=== PATIENT | female | born 1940 | race Caucasian/White ===

== ENCOUNTER 2016-10-24 18:44 | Emergency (ER) | payer MEDICARE, OTHER ==
[2016-10-24 19:29] LABS: URINE APPEARANCE CLOUDY; URINE BILIRUBIN SMALL (NEGATIVE); URINE BLOOD LARGE (NEGATIVE); URINE COLOR BROWN; URINE GLUCOSE (UA) NEGATIVE (NEGATIVE); URINE KETONE NEGATIVE (NEGATIVE); URINE LEUKOCYTE ESTERASE NEGATIVE (NEGATIVE); URINE NITRITE NEGATIVE (NEGATIVE); URINE UROBILINOGEN 0.2 E.U./dL (0.20 - 1.00)
[2016-10-24] MEDS ORDERED: 0.9 % SODIUM CHLORIDE 1,000 ML BAG IV ONE (19:34)
[2016-10-24 19:37] LABS: URINE BACTERIA FEW; URINE SQUAMOUS EPITHELIAL CELL 0 - 2 /hpf; URINE WBC 0 - 2 (0-2/hpf)
[2016-10-24 19:51] LABS: BASO % 0.6 % (0-6); EOS % 3.2 % (0-6); GRAN % 63.1 % (47-80); HEMATOCRIT 40.5 % (35.0-47.0); HEMOGLOBIN 12.3 gm/dl (11.6-16.0); LYMPH % 24.5 % (16-45); MEAN CELL VOLUME 91.8 fl (81-97); MEAN CORPUSCULAR HEMOGLOBIN 27.9 pg (27-33); MEAN CORPUSCULAR HGB CONC 30.4 g/dl (32-36); MEAN PLATELET VOLUME 11.4 fl (7.4-10.4); MONO % 8.6 % (0-9); PLATELET COUNT 129 K/uL (130-400); RED BLOOD COUNT 4.41 M/uL (3.80-5.40); RED CELL DISTRIBUTION WIDTH 14.5 % (11.5-14.5); WHITE BLOOD COUNT W/O DIFF 8.1 K/uL (4.2-12.2)
[2016-10-24 20:03] LABS: ANION GAP 6.6 (7-16); BILIRUBIN,TOTAL 0.44 mg/dL (0.2-1.3); CARBON DIOXIDE 23.4 mmol/L (22-30); CREATININE 1.6 mg/dL (0.52-1.04); TOTAL PROTEIN 7.9 gm/dL (6.3-8.2)
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
[2016-10-24] MEDS ORDERED: HYDROCODONE/APAP 5/325MG TABLET PO ONE (21:28)
[2016-10-24] MEDS ORDERED: BENAZEPRIL 20 MG TABLET PO SCH (21:30)
--- NOTE | 2016-10-29 15:07 | CT SCAN REPORT ---
EXAM: ABDOMEN AND PELVIS CT WITHOUT CONTRAST HISTORY: ACUTE RIGHT LOWER QUADRANT ABDOMINAL PAIN. TECHNIQUE: Contiguous axial images from the lung bases to the symphysis pubis were obtained without IV contrast. Comparison: None. FINDINGS: Moderate sized hiatal hernia. 5 mm nodule posterior basal segment left lower lobe. Evaluation of the solid abdominal visceral organs is compromised due to lack of IV contrast. Scattered calcified granulomata in the liver and spleen. Slight exophytic hypodense focus posterior segment right lobe of the liver on image 28 of 108 measuring 35 Hounsfield units in density and 19 mm in size. The kidneys are unremarkable. The right adrenal is normal. Low attenuation left adrenal nodule measuring 2 Hounsfield units in density and 21 mm in size consistent with benign adenoma. The pancreas is normal. The gallbladder is absent. The visualized loops of small and large bowel are of normal caliber. No small bowel wall thickening. The appendix is not seen although there is no pericecal inflammatory change. Moderate to extensive colonic diverticulosis with no evidence of acute diverticulitis. Mesh material is noted along the lower ventral abdominal wall. There is increased attenuation surrounding what appears to be fat density at the left lateral margin of the mesh material which measures 5 x 2 cm in transverse dimension. Moderate aortic calcification. No free intraperitoneal fluid or adenopathy. No pelvic mass. The osseous structures reveal no lytic or blastic lesion. There are prominent inguinal lymph nodes bilaterally, the largest measuring up to 21 x 23 mm on the left. IMPRESSION: 1. NO ACUTE INFLAMMATORY PROCESS OF THE ABDOMEN OR PELVIS. 2. INDETERMINATE HYPODENSE FOCUS INVOLVING THE POSTERIOR SEGMENT OF THE RIGHT LOBE OF THE LIVER. BENIGN AND MALIGNANT ETIOLOGIES ARE POSSIBLE. COMPARISON WITH PRIOR CROSS SECTIONAL IMAGING OF THE LIVER WOULD BE HELPFUL. IF THIS IS NOT AVAILABLE MRI WITH CONTRAST COULD BETTER ASSESS. 3. BENIGN LEFT ADRENAL ADENOMA. 4. OLD GRANULOMATOUS DISEASE. 5. 5 MM LUNG NODULE LEFT LOWER LOBE. NO SPECIFIC FOLLOW-UP IS NECESSARY. 6. MODERATE SIZED HIATAL HERNIA. 7. COLONIC DIVERTICULOSIS. 8. MESH MATERIAL ALONG THE VENTRAL ABDOMINAL WALL WITH AREA OF INCREASED ATTENUATION SURROUNDING FAT ALONG THE LEFT LATERAL PORTION OF THE MESH. THIS COULD REFLECT POSTOPERATIVE CHANGE WITH POSSIBLE FAT NECROSIS. 9. MILDLY PROMINENT INGUINAL LYMPH NODES OF UNCERTAIN ETIOLOGY. JOB NUMBER: [id number] [facility]
== END 2016-10-24 21:53 | disposition home or self-care (01) ==
LOC: ER 18:44
DX: R10.11 Right upper quadrant pain (principal); N28.9 Disorder of kidney and ureter, unspecified; R31.0 Gross hematuria; K76.9 Liver disease, unspecified; I10 Essential (primary) hypertension
CPT/HCPCS: 74176; 80053; 81001; 83605; 83690; 85025; 99284; J7030

== ENCOUNTER 2017-03-24 13:20 | Emergency (ER) | payer MEDICARE, OTHER ==
--- NOTE | 2017-03-24 13:49 | Emergency Department Record ---
History of Present Illness - General Chief complaint: Vaginal bleeding Stated complaint: VAGINAL BLEEDING Time Seen by Provider: 03/24/17 13:37 Source: Patient, Family, Old records reviewed Mode of Arrival: Ambulatory Limitations: No limitations - History of Present Illness Initial comments: 76 yo female presents with urinary frequency for the last two days. She had noted some blood in the urine in the toilet as well. No fevers. She had developed some low back pain as well. The pain is on both sides. She does have a history of prior renal stones, chronic renal insufficiency, and uti. No vaginal bleeding. No blood in the stools. No nausea or vomiting. MD Complaint: Dysuria (Hematuria) -: Days(s) (2) Location: Other (low back pain) Radiation: L flank, R flank Severity: Moderate Quality: Aching Consistency: Constant Worsens with: None Patient : No Associated Symptoms: Hematuria - Related Data Previous Rx's Medication Instructions Recorded Hydrocodone/Acetaminophen [[place] 1 each PO Q8H #15 tablet 03/24/17 5-325 Tablet] Nitrofurantoin Monohyd/M-Cryst 100 mg PO BID #14 capsule 03/24/17 [Macrobid 100 mg Capsule] Allergies Allergy/AdvReac Type Severity Reaction Status Date / Time codeine Allergy ALTERED Verified 03/24/17 13:45 MENTAL STATUS morphine Allergy ITCHING Verified 03/24/17 13:45 Iodinated Contrast- Oral and AdvReac Pt has Verified 03/24/17 13:45 IV Dye Renal Failure Review of Systems Constitutional: Denies: Chills, Fever, Malaise, Weakness Eyes: Denies: Eye discharge ENT: Denies: Congestion, Throat pain Respiratory: Denies: Cough, Dyspnea, Hemoptysis, Stridor, Wheezes Cardiovascular: Denies: Chest pain, Syncope Endocrine: Reports: Polyuria. Denies: Fatigue Gastrointestinal: Reports: As per HPI, Abdominal pain. Denies: Diarrhea, Nausea , Vomiting Genitourinary: Reports: Dysuria, Frequency, Hematuria, Urgency. Denies: Abnormal menses Musculoskeletal: Reports: Back pain. Denies: Arthralgia, Joint swelling, Myalgia Skin: Denies: Bruising, Change in color, Rash Neurological: Denies: Headache, Numbness, Tremors, Vertigo, Weakness Psychiatric: Denies: Anxiety Hematological/Lymphatic: Denies: Blood Clots, Swollen glands Past Medical History - SOCIAL HISTORY Smoking Status: Never smoker Drug Use: None - RESPIRATORY Hx Respiratory Disorders: No - CARDIOVASCULAR Hx Cardio Disorders: Yes Hx Hypertension: Yes - NEURO Hx Neuro Disorders: No - Hx Genitourinary Disorders: Yes Hx Dialysis: No Hx Renal Disease: Yes - ENDOCRINE Hx Endocrine Disorders: Yes Hx Thyroid Disease: Yes - MUSCULOSKELETAL Hx Musculoskeletal Disorders: No - PSYCH Hx Psych Problems: No - HEMATOLOGY/ONCOLOGY Hx Hematology/Oncology Disorders: No Hx Cancer: No Physical Exam - General General Appearance: Alert, Oriented x3 Limitations: No limitations - Head Head exam: Atraumatic, Normocephalic, Normal inspection - Eye Eye exam: Normal appearance, PERRL Pupils: Normal accommodation - ENT ENT exam: Normal exam, Mucous membranes moist, Normal external ear exam, Normal orophraynx, TM's normal bilaterally Ear exam: Normal external inspection. negative: External canal tenderness Nasal Exam: Normal inspection. negative: Discharge, Sinus tenderness Mouth exam: Normal external inspection, Tongue normal Teeth exam: Normal inspection. negative: Dental caries Throat exam: Normal inspection. negative: Tonsillar erythema, Tonsillar exudate - Neck Neck exam: Normal inspection, Full ROM. negative: Tenderness - Respiratory Respiratory exam: Normal lung sounds bilaterally. negative: Respiratory distress - Cardiovascular Cardiovascular Exam: Regular rate, Normal rhythm, Normal heart sounds - GI/Abdominal GI/Abdominal exam: Soft, Normal bowel sounds, Other (morbidly obese abdomen but soft and not tender). negative: Rebound, Rigid, Tenderness - Rectal Rectal exam: Deferred - exam: Deferred - Extremities Extremities exam: Normal inspection, Full ROM, Normal capillary refill. negative: Tenderness - Back Back exam: Reports: Normal inspection, CVA tenderness (R), CVA tenderness (L), Full ROM, Tenderness. Denies: Muscle spasm, Rash noted - Neurological Neurological exam: Alert, Oriented X3 - Psychiatric Psychiatric exam: Normal affect, Normal mood. negative: Agitated, Anxious - Skin Skin exam: Dry, Intact, Normal color, Warm Course - Reevaluation(s) Reevaluation #1: 03/24/17 14:31 The labs were reviewed No acute changes of the CBC The CMP with a CR of 1.6 which s improved from prior UA is consistent with UTI. 03/24/17 15:11 No acute findings on the CT scan. Chronic stable changes. See the full report. No renal stones. Medical Decision Making - Lab Data Result diagrams: 03/24/17 13:55 03/24/17 13:55 Disposition Disposition: Discharge Clinical Impression: Urinary tract infection Qualifiers: Urinary tract infection type: acute cystitis Hematuria presence: with hematuria Qualified Code(s): N30.01 - Acute cystitis with hematuria Disposition: Home, Self-Care Condition: (1) Good Instructions: Urinary Tract Infection in Women (ED) Additional Instructions: Call your doctor for close follow up Return to the ER if worse, fever, uncontrolled pain or any new concerns Prescriptions: Hydrocodone/Acetaminophen [[place] 5-325 Tablet] 1 each PO Q8H #15 tablet Nitrofurantoin Monohyd/M-Cryst [Mac[place]bid 100 mg Capsule] 100 mg PO BID #14 capsule Forms: Patient Portal Access Time of Disposition: 15:12 Quality - Quality Measures Quality Measures: N/A - Blood Pressure Screening Does Patient Have Any of the Following: No Blood Pressure Classification: Pre-Hypertensive BP Reading Systolic Measurement: 121 Diastolic Measurement: 59 Screening for High Blood Pressure: < Pre-Hypertensive BP, F/U Documented > [ [id number]] Pre-Hypertensive Follow-up Interventions: Referral to alternative/primary care provider.
[2017-03-24] MEDS ORDERED: HYDROCODONE/APAP 5/325MG TABLET PO ONE (14:05)
[2017-03-24 14:12] LABS: URINE APPEARANCE CLEAR; URINE BILIRUBIN NEGATIVE (NEGATIVE); URINE BLOOD MODERATE (NEGATIVE); URINE COLOR YELLOW; URINE GLUCOSE (UA) NEGATIVE (NEGATIVE); URINE KETONE NEGATIVE (NEGATIVE); URINE LEUKOCYTE ESTERASE SMALL (NEGATIVE); URINE NITRITE NEGATIVE (NEGATIVE); URINE PROTEIN NEGATIVE (NEGATIVE); URINE UROBILINOGEN 0.2 E.U./dL (0.20 - 1.00)
[2017-03-24 14:12] LABS: BASO % 0.5 % (0-6); EOS % 2.1 % (0-6); HEMATOCRIT 37.8 % (35.0-47.0); HEMOGLOBIN 11.8 gm/dl (11.6-16.0); LYMPH % 16.3 % (16-45); MEAN CELL VOLUME 89.8 fl (81-97); MEAN CORPUSCULAR HGB CONC 31.2 g/dl (32-36); MEAN PLATELET VOLUME 10.9 fl (7.4-10.4); MONO % 8.1 % (0-9); PLATELET COUNT 118 K/uL (130-400); RED BLOOD COUNT 4.21 M/uL (3.80-5.40); WHITE BLOOD COUNT W/O DIFF 7.9 K/uL (4.2-12.2)
[2017-03-24 14:19] LABS: URINE BACTERIA 3+; URINE EPITHELIAL CELLS 0 - 2 (FEW)
[2017-03-24 14:26] LABS: ALBUMIN 3.7 g/dL (4.0-5.0); BILIRUBIN,TOTAL 0.5 mg/dL (0.2-1.0); CREATININE 1.6 mg/dL (0.5-0.9); TOTAL PROTEIN 7.5 g/dL (6.6-8.7)
[2017-03-24] MEDS ORDERED: NITROFURANTOIN MONO 100 MG CAPSULE PO ONE (14:30)
--- NOTE | 2017-03-25 11:22 | CT SCAN REPORT ---
EXAM: CT SCAN ABDOMEN/PELVIS WO CONTRAST HISTORY: BLADDER DISCOMFORT. TECHNIQUE: CT of the abdomen and pelvis was performed without oral or IV contrast. This limits evaluation of bowel and solid visceral organs. COMPARISON: Prior CT from 10/24/16. FINDINGS: Limited evaluation of the lung bases shows a moderate-sized hiatal hernia. Osseous structures are grossly intact. Branching lucencies within the liver likely relates to pneumobilia. Correlate with any recent instrumentation. Status post cholecystectomy. Splenic granulomata. There is a stable 2.1 x 2.2 cm left adrenal nodule, likely adenoma. The right adrenal gland is unremarkable. The visualized pancreas and kidneys are unremarkable. No gross evidence for bowel obstruction. Postsurgical changes consistent with prior anterior abdominal wall hernia repair. There is a stable area of mixed density at the hernia repair site measuring 5.3 x 4.0 cm. This is associated with the left mesh material. This may relate to a component of scarring and fibrosis. Urinary bladder is not distended, limiting its evaluation. Negative for urinary tract calculus or hydronephrosis. No free air or free fluid. IMPRESSION: 1. PNEUMOBILIA. CORRELATE WITH ANY RECENT INSTRUMENTATION. THE PATIENT IS STATUS POST CHOLECYSTECTOMY. 2. MODERATE-SIZED HIATAL HERNIA. 3. MIXED DENSITY FOCUS NEAR THE SITE OF ANTERIOR ABDOMINAL WALL HERNIA REPAIR/ MESH, ALSO PRESENT PREVIOUSLY. JOB NUMBER: [id number] [facility]
== END 2017-03-24 16:05 | disposition home or self-care (01) ==
LOC: ER 13:20
DX: N30.01 Acute cystitis with hematuria (principal); M54.5 Low back pain; I12.9 Hypertensive chronic kidney disease with stage 1 through stage 4 chronic kidney disease, or unspecified chronic kidney disease; N18.9 Chronic kidney disease, unspecified; Z87.442 Personal history of urinary calculi
CPT/HCPCS: 74176; 80053; 81001; 85025; 99283; 99284

== ENCOUNTER 2017-09-22 15:09 | Emergency (ER) | payer MEDICARE, OTHER ==
--- NOTE | 2017-09-22 15:43 | Emergency Department Record ---
History of Present Illness - General Stated complaint: DIARRHEA Time Seen by Provider: 09/22/17 15:36 Source: Patient, Family Mode of Arrival: Ambulatory Limitations: No limitations - History of Present Illness Initial comments: 77 yo female presents with nausea, diarrhea since Thursday. No fevers or blood. No recent antibiotics. She is feeling weak and dehydrated. She reports having stools every 2 hours. No vomiting but she has come close. No abdominal pain. Her stool is watery brown. PCP is Cora. GI is Marbin. She has been drinking normally. She is still eating but has some nausea. MD complaint: Diarrhea, Nausea, Vomiting -: Days(s) (5) Description of Vomiting: Watery Description of Diarrhea: Water Radiation: Other (No pain) Severity: Moderate Consistency: Constant Improves with: None Worsens with: Eating Context: Other Associated Symptoms: Denies other symptoms - Related Data Previous Rx's Medication Instructions Recorded Loperamide HCl [Immodium] 2 mg PO NOW #10 capsule 09/22/17 Ondansetron [Zofran Odt] 4 mg PO Q8H #15 tab.rapdis 09/22/17 Allergies Allergy/AdvReac Type Severity Reaction Status Date / Time codeine Allergy ALTERED Verified 09/22/17 16:28 MENTAL STATUS morphine Allergy ITCHING Verified 09/22/17 16:28 Iodinated Contrast- Oral and AdvReac Pt has Verified 09/22/17 16:28 IV Dye Renal Failure Review of Systems Constitutional: Reports: Weakness. Denies: Chills, Fever Eyes: Denies: Eye discharge, Eye pain ENT: Denies: Congestion, Dental pain, Throat pain Respiratory: Denies: Cough, Dyspnea, Hemoptysis, Stridor, Wheezes Cardiovascular: Denies: Chest pain, Palpitations, Syncope Endocrine: Denies: Fatigue, Polydipsia, Polyuria Gastrointestinal: Reports: Diarrhea, Nausea. Denies: Abdominal pain, Hematochezia, Vomiting Genitourinary: Denies: Dysuria, Urgency Musculoskeletal: Denies: Arthralgia, Back pain, Joint swelling, Myalgia Skin: Denies: Bruising, Change in color Neurological: Denies: Headache, Numbness, Vertigo, Weakness Psychiatric: Denies: Anxiety Hematological/Lymphatic: Denies: Blood Clots, Easy bleeding, Easy bruising, Swollen glands Past Medical History - SOCIAL HISTORY Smoking Status: Never smoker Drug Use: None - RESPIRATORY Hx Respiratory Disorders: No - CARDIOVASCULAR Hx Cardio Disorders: Yes Hx Hypertension: Yes - NEURO Hx Neuro Disorders: No - GI Hx Diverticulitis: Yes - Hx Genitourinary Disorders: Yes Hx Dialysis: No Hx Renal Disease: Yes - ENDOCRINE Hx Endocrine Disorders: Yes Hx Thyroid Disease: Yes - MUSCULOSKELETAL Hx Musculoskeletal Disorders: No - PSYCH Hx Psych Problems: No - HEMATOLOGY/ONCOLOGY Hx Hematology/Oncology Disorders: No Hx Cancer: No Physical Exam - General General Appearance: Alert, Oriented x3, Cooperative, No acute distress Limitations: No limitations - Head Head exam: Atraumatic, Normal inspection - Eye Eye exam: Normal appearance. negative: Conjunctival injection, Scleral icterus - ENT ENT exam: Normal exam, Mucous membranes moist Ear exam: Normal external inspection Nasal Exam: Normal inspection Mouth exam: Normal external inspection Teeth exam: Normal inspection Throat exam: Normal inspection - Neck Neck exam: Normal inspection, Full ROM. negative: Tenderness - Respiratory Respiratory exam: Normal lung sounds bilaterally. negative: Respiratory distress, Rhonchi, Stridor, Wheezes - Cardiovascular Cardiovascular Exam: Regular rate, Normal rhythm, Normal heart sounds - GI/Abdominal GI/Abdominal exam: Soft. negative: Distended, Guarding, Rebound, Rigid, Tenderness - Rectal Rectal exam: Deferred - exam: Deferred - Extremities Extremities exam: Normal inspection, Full ROM, Normal capillary refill. negative: Tenderness - Back Back exam: Denies: CVA tenderness (R), CVA tenderness (L) - Neurological Neurological exam: Alert, Normal gait, Oriented X3 - Psychiatric Psychiatric exam: Normal affect, Normal mood - Skin Skin exam: Dry, Intact, Normal color, Warm Course - Reevaluation(s) Reevaluation #1: 09/22/17 17:08 The labs were reviewed No acute changes on the CBC The CMP CR is 1.6 which is her normal baseline Lipase 71. Normal AG. Stool sample reviewed. Negative for blood or WBC. Negative for crypto. Negative Giardia. Negative Rotovirus 09/22/17 17:10 09/22/17 17:25 The C diff is pending The patient reports the nausea is greatly improved No abdominal pain 09/22/17 17:55 All stool studies are negative Immodium ordered 09/22/17 17:58 The patient continued to do very well. After the 2nd liter of IVF I anticipate DC home with supportive care with a plan to return to the ED in the next 24-48 hours for a recheck (or her PCP) if the diarrhea is not improving. She has no pain, normal stool studies, labs are at her baseline and she is drinking well at home staying hydrated. 09/22/17 18:11 UA reviewed N- LE- No WBC Bacteria No Ketones Culture Sent Patient informed Medical Decision Making - Lab Data Result diagrams: 09/22/17 16:05 09/22/17 16:05 Disposition Disposition: Discharge Clinical Impression: Diarrhea Qualifiers: Diarrhea type: unspecified type Qualified Code(s): R19.7 - Diarrhea, unspecified Disposition: Home, Self-Care Condition: (1) Good Instructions: Acute Diarrhea (ED) Additional Instructions: Return to the ER or see you family doctor in the next 24 to 48 hours if the diarrhea continues Continue to stay well hydrated home You may use the Zofran and Immodium as directed Prescriptions: Loperamide HCl [Immodium] 2 mg PO NOW #10 capsule Ondansetron [Zofran Odt] 4 mg PO Q8H #15 tab.rapdis Forms: Patient Portal Access Time of Disposition: 18:01 Quality - Quality Measures Quality Measures: N/A - Blood Pressure Screening Does Patient Have Any of the Following: Active Dx of HTN Blood Pressure Classification: Hypertensive Reading Systolic Measurement: 144 Diastolic Measurement: 78 Screening for High Blood Pressure: Patient Exclusion, Hx of HTN [G9744]
[2017-09-22] MEDS: ONDANSETRON HCL IV 4 MG/2 ML VIAL IVP ONE (16:05)
[2017-09-22] MEDS: 0.9 % SODIUM CHLORIDE 1,000 ML BAG IV ONE ×2 (16:06→17:58)
[2017-09-22 16:16] LABS: BASO % 0.4 % (0-6); EOS % 1.3 % (0-6); GRAN % 77.2 % (47-80); HEMATOCRIT 37.8 % (35.0-47.0); HEMOGLOBIN 11.7 gm/dl (11.6-16.0); LYMPH % 15.7 % (16-45); MEAN CELL VOLUME 88.5 fl (81-97); MEAN CORPUSCULAR HEMOGLOBIN 27.4 pg (27-33); MEAN PLATELET VOLUME 10.5 fl (7.4-10.4); MONO % 5.4 % (0-9); PLATELET COUNT 137 K/uL (130-400); RED BLOOD COUNT 4.27 M/uL (3.80-5.40); WHITE BLOOD COUNT W/O DIFF 8.6 K/uL (4.2-12.2)
[2017-09-22 16:31] LABS: BILIRUBIN,TOTAL 0.4 mg/dL (0.2-1.0); CREATININE 1.6 mg/dL (0.5-0.9); TOTAL PROTEIN 7.4 g/dL (6.6-8.7)
[2017-09-22 16:36] LABS: ALB/GLOB RATIO 0.9 (1.1-1.8); ALBUMIN 3.6 g/dL (4.0-5.0)
[2017-09-22 16:59] LABS: STOOL FOR POLYS NO WBC'S OBSERVED (NO WBC'S)
[2017-09-22 17:06] LABS: CRYPTOSPORIDIUM PARVUM ANTIGEN NOT DETECTED (NOT DETECT); GIARDIA LAMBLIA ANTIGEN NOT DETECTED (NOT DETECT); ROTOVIRUS NOT DETECTED (NOT DETECT)
[2017-09-22 17:48] LABS: MOLECULAR C DIFF TOXIN SCREEN NOT DETECTED (NOT DETECT)
[2017-09-22 17:57] LABS: URINE APPEARANCE CLEAR; URINE BILIRUBIN NEGATIVE (NEGATIVE); URINE BLOOD SMALL (NEGATIVE); URINE COLOR YELLOW; URINE GLUCOSE (UA) NEGATIVE (NEGATIVE); URINE KETONE NEGATIVE (NEGATIVE); URINE LEUKOCYTE ESTERASE NEGATIVE (NEGATIVE); URINE NITRITE NEGATIVE (NEGATIVE); URINE PROTEIN TRACE (NEGATIVE); URINE UROBILINOGEN 0.2 E.U./dL (0.20 - 1.00)
[2017-09-22] MEDS: LOPERAMIDE 2 MG CAPSULE PO ONE ×2 (17:58→18:11)
[2017-09-22 18:07] LABS: URINE RBC 0 - 2 (NONE SEEN); URINE WBC 0 - 2 (0-2/hpf)
[2017-09-22 18:08] LABS: URINE BACTERIA 2+
[2017-09-22] MEDS: ONDANSETRON 4 MG ODT TABLET SL ONE (18:10)
== END 2017-09-22 18:32 | disposition home or self-care (01) ==
LOC: ER 15:09
DX: R19.7 Diarrhea, unspecified (principal); R11.2 Nausea with vomiting, unspecified; I10 Essential (primary) hypertension
CPT/HCPCS: 80053; 81001; 82272; 83690; 85025; 87329; 87425; 87493; 89055; 99284; J2405; J7030

== ENCOUNTER 2017-10-04 13:44 | Emergency (ER) | payer MEDICARE, OTHER ==
--- NOTE | 2017-10-04 13:58 | Emergency Department Record ---
History of Present Illness - General Chief Complaint: Fall Injury Stated Complaint: FELL IN BATHROOM AT HOME Time Seen by Provider: 10/04/17 13:49 Source: Patient, Family Mode of Arrival: Ambulatory Limitations: No limitations - History of Present Illness Initial Comments: The patient is here due to falling in the bathroom at home about 2 hours prior to arrival. She believes she tripped and landed falling forward hitting her R forehead mildly and also hurt her R wrist and L shoulder. The patient's family did hear the patient fall and did find her awake immediately after. Since the fall she is only complaining of R wrist and L shoulder pain. There is no reported COPPOLA, or neck pain. The patient is on Xarelto due to chronic L leg edema. The patient did take a [place] after the fall and does not want any more pain medicine at this time. Complaint: Fall Onset/Timin -: Hour(s) Fall From: Standing When Fall Occurred: Just prior to arrival Fall Witnessed: No Place Fall Occurred: Home Loss of Consciousness: None Prolonged Down Time?: No Symptoms Prior to Fall: None - Related Data Previous Rx's Medication Instructions Recorded Loperamide HCl [Immodium] 2 mg PO NOW #10 capsule 09/22/17 Ondansetron [Zofran Odt] 4 mg PO Q8H #15 tab.rapdis 09/22/17 Allergies Allergy/AdvReac Type Severity Reaction Status Date / Time codeine Allergy ALTERED Verified 09/22/17 16:28 MENTAL STATUS morphine Allergy ITCHING Verified 09/22/17 16:28 Iodinated Contrast- Oral and AdvReac Pt has Verified 09/22/17 16:28 IV Dye Renal Failure Review of Systems Constitutional: Denies: Chills, Fever Eyes: Denies: Eye discharge ENT: Denies: Congestion Respiratory: Denies: Cough, Dyspnea Cardiovascular: Denies: Arrhythmia Endocrine: Reports: Fatigue Gastrointestinal: Denies: Abdominal pain Genitourinary: Denies: Dysuria Musculoskeletal: Denies: Back pain Past Medical History - SOCIAL HISTORY Smoking Status: Never smoker Drug Use: None - RESPIRATORY Hx Respiratory Disorders: No - CARDIOVASCULAR Hx Cardio Disorders: Yes Hx Hypertension: Yes - NEURO Hx Neuro Disorders: No - GI Hx Diverticulitis: Yes - Hx Genitourinary Disorders: Yes Hx Dialysis: No Hx Renal Disease: Yes - ENDOCRINE Hx Endocrine Disorders: Yes Hx Thyroid Disease: Yes - MUSCULOSKELETAL Hx Musculoskeletal Disorders: No - PSYCH Hx Psych Problems: No - HEMATOLOGY/ONCOLOGY Hx Hematology/Oncology Disorders: No Hx Cancer: No Physical Exam - General General Appearance: Alert, Oriented x3, Cooperative, No acute distress - Head Head exam: Normocephalic. negative: Atraumatic, Normal inspection (There is a minor contusion to the R forehead area.) - Eye Eye exam: Normal appearance, PERRL, EOMI - ENT Throat exam: Normal inspection. negative: Tonsillar erythema, Tonsillar exudate - Neck Neck exam: Normal inspection, Full ROM. negative: Tenderness - Respiratory Respiratory exam: Normal lung sounds bilaterally. negative: Respiratory distress - Cardiovascular Cardiovascular Exam: Regular rate, Normal rhythm, Normal heart sounds - GI/Abdominal GI/Abdominal exam: Soft, Normal bowel sounds. negative: Tenderness - Extremities Extremities exam: negative: Normal inspection Course - Reevaluation(s) Reevaluation #1: The patient is doing better at this time. She denies any significant COPPOLA or neck pain and states the pain in the wrist and shoulder have worsened. I did discuss the plan with her and the need for Ortho consultation and she would like to go to [facility]. 10/04/17 15:42 Reevaluation #2: I did discuss the case with Dr. Brooks in the [facility] ED who accepts the patient for Trauma. I also did discuss the case with Dr. Myers at [facility] ([facility]) and he is aware of the case. 10/04/17 16:01 Medical Decision Making - Data Complexity MDM Data: Labs Ordered and/or Reviewed, X-Ray Ordered and/or Reviewed, EKG Ordered and/or Reviewed - Lab Data Result diagrams: 10/04/17 14:11 10/04/17 14:11 - EKG Data -: EKG Interpreted by Me EKG: No Acute Changes, Normal EKG - Radiology Data Radiology results: Report reviewed (Head CT: Neg for acute injury Cervical CT : Neg for fx or dislocation. R Wrist: Intraarticular distal radius and ulna fx with impaction. L shoulder: Surgical neck comminuted fx with significant displacement.) Disposition Disposition: Transfer Clinical Impression: Wrist fracture, right Qualifiers: Encounter type: initial encounter Fracture type: closed Qualified Code(s): S62.101A - Fracture of unspecified carpal bone, right wrist, initial encounter for closed fracture Fractured shoulder Qualifiers: Encounter type: initial encounter Fracture type: closed Laterality: left Qualified Code(s): S42.92XA - Fracture of left shoulder girdle, part unspecified , initial encounter for closed fracture Disposition: Acute Care Hospital Transfer Transfer To: [facility] ED Reason For Transfer: Trauma and Orthopedics Accepting Physician: Cecilia Time Discussed w/Accepting Physician: 16:03 Condition: (2) Stable Forms: Patient Portal Access Time of Disposition: 16:03 Quality - Quality Measures Quality Measures: N/A - Blood Pressure Screening View Details: Yes Does Patient Have Any of the Following: No Blood Pressure Classification: Pre-Hypertensive BP Reading Systolic Measurement: 125 Diastolic Measurement: 54 Screening for High Blood Pressure: < Pre-Hypertensive BP, F/U Documented > [ G8950] Pre-Hypertensive Follow-up Interventions: Referral to alternative/primary care provider.
[2017-10-04] MEDS ORDERED: ONDANSETRON HCL IV 4 MG/2 ML VIAL IVP ONE ×2 (13:59→16:45)
[2017-10-04] MEDS ORDERED: MORPHINE SULFATE 4MG/ML PREFILLED SYRINGE IVP ONE (13:59)
[2017-10-04 14:13] LABS: HEMATOCRIT 36.9 % (35.0-47.0); HEMOGLOBIN 11.2 gm/dl (11.6-16.0); MEAN CELL VOLUME 88.7 fl (81-97); MEAN CORPUSCULAR HEMOGLOBIN 26.9 pg (27-33); MEAN CORPUSCULAR HGB CONC 30.4 g/dl (32-36); MEAN PLATELET VOLUME 10.4 fl (7.4-10.4); PLATELET COUNT 155 K/uL (130-400); RED BLOOD COUNT 4.16 M/uL (3.80-5.40); RED CELL DISTRIBUTION WIDTH 17.4 % (11.5-14.5); WHITE BLOOD COUNT W/O DIFF 8.5 K/uL (4.2-12.2)
[2017-10-04 14:28] LABS: INR 1.1; PARTIAL THROMBOPLASTIN TIME 29.9 SECONDS (24.5-39.1); PROTHROMBIN TIME (PATIENT) 12.1 SECONDS (9.5-12.1)
[2017-10-04 14:30] LABS: ALBUMIN 3.5 g/dL (4.0-5.0); ALKALINE PHOSPHATASE 92 U/L (35-104); ALT/SGPT < 5 U/L (<33); AST/SGOT 16 U/L (10.0-35.0); BLOOD UREA NITROGEN 26 mg/dL (8-23); CREATINE PHOSPHOKINASE 79 U/L (26-192)
[2017-10-04 14:31] LABS: ALB/GLOB RATIO 0.9 (1.1-1.8); CREATININE 1.6 mg/dL (0.5-0.9); EST GLOMERULAR FILTRATION RATE 33 mL/min; GLUCOSE,RANDOM 135 mg/dL (74-109); TOTAL PROTEIN 7.3 g/dL (6.6-8.7)
[2017-10-04 14:32] LABS: CKMB 2.6 ng/mL (<3.77)
[2017-10-04] MEDS ORDERED: HYDROMORPHONE HCL 2 MG/ML VIAL IVP ONE (15:05)
--- NOTE | 2017-10-05 10:24 | RADIOLOGY REPORT ---
EXAM: LEFT SHOULDER HISTORY: FELL IN SHOWER TODAY. SEVERE LEFT SHOULDER PAIN. TECHNIQUE: Three views of the left shoulder were obtained. Comparison: None. Encounter: Initial. FINDINGS: There is a comminuted fracture of the surgical neck of the humerus with medial displacement of the distal fragment. A vertically oriented fracture is also noted extending into the greater tuberosity. The tuberosity fracture is displaced superiorly and posteriorly. There is no dislocation of the humeral head. There are mild arthritic changes of the acromioclavicular joint. IMPRESSION: COMMINUTED DISPLACED FRACTURE OF THE SURGICAL NECK AND GREATER TUBEROSITY OF THE LEFT HUMERUS. JOB NUMBER: [id number] MTDD
--- NOTE | 2017-10-05 10:28 | RADIOLOGY REPORT ---
EXAM: RIGHT WRIST HISTORY: FELL IN SHOWER TODAY, RIGHT WRIST PAIN WITH SWELLING AND BRUISING. TECHNIQUE: Four views of the right wrist were obtained. Comparison: None. FINDINGS: There is a comminuted intraarticular fracture of the distal radius with no significant displacement. There is a nondisplaced, mildly impacted fracture of the distal ulnar metaphysis. There is abnormal widening of the scapholunate distance. No discreet carpal fracture is identified. There are advanced arthritic changes along the radial aspect of the wrist and first carpal metacarpal joint. IMPRESSION: 1. NONDISPLACED MILDLY COMMINUTED INTRAARTICULAR FRACTURE OF THE DISTAL RADIUS. 2. NONDISPLACED, MILDLY IMPACTED FRACTURE OF THE DISTAL ULNA. 3. ABNORMAL WIDENING OF THE SCAPHOLUNATE DISTANCE. JOB NUMBER: [id number] MTDD
--- NOTE | 2017-10-05 10:40 | CT SCAN REPORT ---
EXAM: CT SCAN OF THE BRAIN WITHOUT CONTRAST HISTORY: FELL IN SHOWER TODAY. HEMATOMA AT THE RIGHT FOREHEAD. TECHNIQUE: Standard CT imaging of the brain was performed in the axial plane without contrast. Comparison: None. Encounter: Initial. FINDINGS: There is mild generalized atrophy. The ventricles and subarachnoid spaces are otherwise normal. Mild chronic small vessel ischemic changes are present within the periventricular and subcortical white matter at both cerebral hemispheres. There is no mass, mass effect, intracranial hemorrhage, visible acute infarct, or abnormal extraaxial fluid. The skull is intact. Mild scalp swelling is present within the right frontal region. The orbits, sinuses, and mastoids are normal. IMPRESSION: 1. NO ACUTE INTRACRANIAL ABNORMALITY OR SKULL FRACTURE. 2. MILD RIGHT FRONTAL SCALP SWELLING. 3. MILD ATROPHY AND CHRONIC SMALL VESSEL ISCHEMIC CHANGES. JOB NUMBER: [id number] MTDD
--- NOTE | 2017-10-05 10:44 | CT SCAN REPORT ---
EXAM: CT SCAN OF THE CERVICAL SPINE WITHOUT CONTRAST HISTORY: FELL IN SHOWER TODAY. TRAUMA. HEAD INJURY. TECHNIQUE: Standard CT imaging of the cervical spine was performed in the axial plane without contrast. Comparison: None. Encounter: Initial. FINDINGS: There is normal cervical alignment. The craniocervical and cervicothoracic junctions are normal. There is no acute fracture, subluxation, or prevertebral soft tissue swelling. There is moderate to severe disk space narrowing of the C4 through the T1 levels with associated end plate degenerative change. Moderate disk space narrowing is present at the C2-C3 and C3-C4 levels. There is no gross central canal stenosis. Mild neural foraminal narrowing is present at multiple levels. The neck soft tissues appear within normal limits. The lung apices are clear. IMPRESSION: 1. NO ACUTE CERVICAL SPINE PATHOLOGY. 2. MULTILEVEL DEGENERATIVE DISK DISEASE. JOB NUMBER: [id number] MTDD
== END 2017-10-04 16:50 | disposition short-term general hospital (02) ==
LOC: ER 13:44
DX: S52.571A Other intraarticular fracture of lower end of right radius, initial encounter for closed fracture (principal); S52.601A Unspecified fracture of lower end of right ulna, initial encounter for closed fracture; S42.252A Displaced fracture of greater tuberosity of left humerus, initial encounter for closed fracture; S00.83XA Contusion of other part of head, initial encounter; I10 Essential (primary) hypertension; Z79.01 Long term (current) use of anticoagulants; W01.10XA Fall on same level from slipping, tripping and stumbling with subsequent striking against unspecified object, initial encounter; Y92.002 Bathroom of unspecified non-institutional (private) residence as the place of occurrence of the external cause
CPT/HCPCS: 29125; 99285 ×2; 96376; 96374; 96375; 82550; 85730; 85610; 82553; 80053; 84484; 85027; 73030; 73110; 72125; 70450; 93005; 93010; J2405; J1170

== ENCOUNTER 2018-01-07 18:03 | Emergency (ER) | payer MEDICARE, OTHER ==
--- NOTE | 2018-01-07 19:10 | Emergency Department Record ---
History of Present Illness - General Chief Complaint: Trauma Stated Complaint: FALL Time Seen by Provider: 01/07/18 18:39 Source: Patient Mode of Arrival: Wheelchair Limitations: No limitations - History of Present Illness Initial Comments: pt was getting into a truck when her r leg gave way with a crack. pt has pain in the ankle. Complaint: Injury Onset/Timin -: Minutes(s) Loss of Consciousness: No Location - Extremities: Right: Ankle Severity scale (1-10): 10 Consistency: Constant Context: Other Associated Symptoms: Denies other symptoms - Related Data Previous Rx's Medication Instructions Recorded Hydrocodone/Acetaminophen [[place] 1 each PO Q6HR #7 tablet 01/07/18 5-325 Tablet] Allergies Allergy/AdvReac Type Severity Reaction Status Date / Time codeine Allergy ALTERED Verified 01/07/18 18:21 MENTAL STATUS morphine Allergy ITCHING Verified 01/07/18 18:21 Iodinated Contrast- Oral and AdvReac Pt has Verified 01/07/18 18:21 IV Dye Renal Failure Travel Screening - Travel/Exposure Within Last 30 Days Have you traveled within the last 30 days?: No - Travel/Exposure Within Last Year Have you traveled outside the [place] in the last year?: No - Additonal Travel Details Have you been exposed to anyone with a communicable illness?: No - Travel Symptoms Symptom Screening: None Review of Systems Reviewed: No additional complaints except as noted below Constitutional: Reports: As per HPI. Denies: Chills, Fever, Malaise, Night sweats, Weakness, Weight change Eyes: Reports: As per HPI. Denies: Eye discharge, Eye pain, Photophobia, Vision change ENT: Reports: As per HPI. Denies: Congestion, Dental pain, Ear pain, Epistaxis , Hearing loss, Throat pain Respiratory: Reports: As per HPI. Denies: Cough, Dyspnea, Hemoptysis, Stridor, Wheezes Cardiovascular: Reports: As per HPI. Denies: Arrhythmia, Chest pain, Dyspnea on exertion, Edema, Murmurs, Orthopnea, Palpitations, Paroxysmal nocturnal dyspnea, Rheumatic Fever, Syncope Endocrine: Reports: As per HPI. Denies: Fatigue, Heat or cold intolerance, Polydipsia, Polyuria Gastrointestinal: Reports: As per HPI. Denies: Abdominal pain, Constipation, Diarrhea, Hematemesis, Hematochezia, Melena, Nausea, Vomiting Genitourinary: Reports: As per HPI. Denies: Abnormal menses, Discharge, Dyspareunia, Dysuria, Frequency, Hematuria, Incontinence, Retention, Urgency Musculoskeletal: Reports: As per HPI. Denies: Arthralgia, Back pain, Gout, Joint swelling, Myalgia, Neck pain Skin: Reports: As per HPI. Denies: Bruising, Change in color, Change in hair/ nails, Lesions, Pruritus, Rash Neurological: Reports: As per HPI. Denies: Abnormal gait, Confusion, Headache, Numbness, Paresthesias, Seizure, Tingling, Tremors, Vertigo, Weakness Psychiatric: Reports: As per HPI. Denies: Anxiety, Auditory hallucinations, Depression, Homicidal thoughts, Suicidal thoughts, Visual hallucinations Hematological/Lymphatic: Reports: As per HPI. Denies: Anemia, Blood Clots, Easy bleeding, Easy bruising, Swollen glands Past Medical History - SOCIAL HISTORY Smoking Status: Never smoker Alcohol Use: None Drug Use: None - RESPIRATORY Hx Respiratory Disorders: No - CARDIOVASCULAR Hx Cardio Disorders: Yes Hx Hypertension: Yes - NEURO Hx Neuro Disorders: No - GI Hx GI Disorders: Yes Hx Diverticulitis: Yes (diverticulosis) - Hx Genitourinary Disorders: Yes Hx Dialysis: No Hx Renal Disease: Yes - ENDOCRINE Hx Endocrine Disorders: Yes Hx Diabetes: No Hx Thyroid Disease: Yes - MUSCULOSKELETAL Hx Musculoskeletal Disorders: No - PSYCH Hx Psych Problems: No - HEMATOLOGY/ONCOLOGY Hx Hematology/Oncology Disorders: No Hx Cancer: No Family Medical History Any Significant Family History?: No Physical Exam - General General Appearance: Alert, Oriented x3, Cooperative, Mild distress - Head Head exam: Normal inspection - Eye Eye exam: Normal appearance, PERRL, EOMI Pupils: Normal accommodation - ENT ENT exam: Normal exam, Mucous membranes moist, Normal external ear exam, Normal orophraynx Ear exam: Normal external inspection. negative: External canal tenderness Nasal Exam: Normal inspection. negative: Discharge, Sinus tenderness Mouth exam: Normal external inspection, Tongue normal Teeth exam: Normal inspection. negative: Dental caries Throat exam: Normal inspection. negative: Tonsillar erythema, Tonsillar exudate - Neck Neck exam: Normal inspection, Full ROM. negative: Tenderness - Respiratory Respiratory exam: Normal lung sounds bilaterally. negative: Respiratory distress - Cardiovascular Cardiovascular Exam: Regular rate, Normal rhythm, Normal heart sounds - GI/Abdominal GI/Abdominal exam: Soft, Normal bowel sounds. negative: Tenderness - Rectal Rectal exam: Deferred - exam: Deferred - Extremities Extremities exam: Joint swelling, Normal capillary refill, Tenderness. negative : Normal inspection, Full ROM - Back Back exam: Reports: Normal inspection, Full ROM. Denies: Muscle spasm, Rash noted, Tenderness - Neurological Neurological exam: Alert, CN II-XII intact, Normal gait, Oriented X3 - Psychiatric Psychiatric exam: Normal affect, Normal mood - Skin Skin exam: Dry, Intact, Normal color, Warm Course Vital Signs 01/07/18 18:09 Temperature 98.4 F Pulse Rate 94 H Respiratory 20 Rate Blood Pressure 156/89 Pulse Ox 96 Disposition Disposition: Discharge Clinical Impression: Fibula fracture Qualifiers: Encounter type: initial encounter Fibula location: distal Fracture type: closed Fracture morphology: other fracture Laterality: right Qualified Code(s): S82.831A - Other fracture of upper and lower end of right fibula, initial encounter for closed fracture Disposition: Home, Self-Care Condition: (1) Good Instructions: Ankle Fracture (ED), Leg Fracture (ED) Additional Instructions: follow up with dr gresham. return sooner if worse. ice and elevate. Prescriptions: Hydrocodone/Acetaminophen [[place] 5-325 Tablet] 1 each PO Q6HR #7 tablet Referrals: [facility] [Provider Group] MILTON GRESHAM [DOCTOR OF OSTEOPATH] - Forms: Patient Portal Access Quality - Quality Measures Quality Measures: N/A - Blood Pressure Screening Does Patient Have Any of the Following: No Blood Pressure Classification: Pre-Hypertensive BP Reading Systolic Measurement: 156 Diastolic Measurement: 89 Screening for High Blood Pressure: < Pre-Hypertensive BP, F/U Documented > [ G8950] Pre-Hypertensive Follow-up Interventions: Follow-up with rescreen every year.
[2018-01-07] MEDS: HYDROCODONE/APAP 5/325MG TABLET PO ONE (19:19)
--- NOTE | 2018-01-10 21:10 | RADIOLOGY REPORT ---
EXAM: ANKLE RIGHT 3 VIEWS HISTORY: FALL FROM TRUCK. TECHNIQUE: Three views of the right ankle. COMPARISON: None. ENCOUNTER: Initial. FINDINGS: Diffuse osteopenia limits evaluation. There is an oblique fracture of the distal fibula with the distal extent located near the superior margin of the distal tibiofibular joint. There is slight proximal and lateral displacement of the distal fracture fragment. On the AP view, the tibiotalar joint space measures approximately 5 mm. There is associated soft tissue swelling. No other definite fracture is seen though on the AP view, there is subtle lucency projecting near the medial margin of the medial malleolus base. There is a small ossicle noted adjacent to the tip of the medial malleolus. There is asymmetry of the ankle mortise on the AP view with the medial corner appearing slightly more pronounced than the lateral corner. There are degenerative changes scattered throughout the tibiotalar joint and hindfoot. There is associated flattening of the plantar arch. A small plantar calcaneal spur is present. There is chronic-appearing calcific density projecting at the level of the mid Achilles tendon measuring 2.2 x 0.9 cm. There is diffuse soft tissue swelling, most pronounced laterally. This extends into the proximal foot. IMPRESSION: 1. DIFFUSE OSTEOPENIA. 2. ACUTE MINIMALLY DISPLACED OBLIQUE FRACTURE OF THE DISTAL FIBULA. 3. SUBTLE LUCENCY PROJECTING NEAR THE MEDIAL MARGIN OF THE MEDIAL MALLEOLUS BASE IS LIKELY CHRONIC WITH ACUTE FRACTURE LESS LIKELY. CHRONIC-APPEARING OSSICLE AT THE TIP OF THE MEDIAL MALLEOLUS. 4. DIFFUSE SOFT TISSUE SWELLING, MOST PRONOUNCED LATERALLY WITH EXTENSION INTO THE FOOT. 5. MILD ASYMMETRY OF THE ANKLE MORTISE, DETAILED ABOVE. 6. DIFFUSE DEGENERATIVE CHANGES. FLATTENING OF THE PLANTAR ARCH. 7. OSSIFIC DENSITY AT THE MID ACHILLES REGION. JOB NUMBER: [id number] [facility]
== END 2018-01-07 20:48 | disposition home or self-care (01) ==
LOC: ER 18:03
DX: S82.831A Other fracture of upper and lower end of right fibula, initial encounter for closed fracture (principal); X50.0XXA Overexertion from strenuous movement or load, initial encounter; I10 Essential (primary) hypertension; Z79.01 Long term (current) use of anticoagulants
CPT/HCPCS: 99283

== ENCOUNTER 2018-05-13 12:23 | Emergency (ER) | payer MEDICARE, OTHER ==
--- NOTE | 2018-05-13 12:43 | Emergency Department Record ---
History of Present Illness - General Chief complaint: Extremity Problem Stated complaint: HEMATOMA LEFT LEG Time Seen by Provider: 05/13/18 12:25 Source: Patient, Family Mode of Arrival: Wheelchair Limitations: No limitations - History of Present Illness Initial comments: 77 yo female presents with increased swelling in a chronically swollen left lower leg. 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 The patient and family note the left leg is more swollen since last night. She denies any injury recently. No fevers or chills. NO redness or streaking. She has a chronic wound on the leg. She has been to [facility] several times and was not a surgery candidate. She has a Alburtis Filter and her medication list states she is on Xarelto. The patient had an IVC placed due to a rectus muscle sheath hematoma requiring a stoppage of anticoagulation in January. She is on Lovenox 60mg daily currently. MD Complaint: Extremity pain, Extremity swelling -: Days(s) Location: Left, Lower Leg Radiation: Distal Quality: Aching Consistency: Constant Improves with: Elevation Worsens with: Walking, Weight bearing Associated Symptoms: Denies other symptoms - Related Data Home Medications Medication Instructions Recorded Confirmed Last Taken Acetaminophen [Tylenol] 325 mg PO 05/13/18 05/13/18 05/13/18 Enoxaparin Sodium [Lovenox] 60 mg SC DAILY 05/13/18 05/13/18 05/13/18 Ferrous Sulfate 325 mg PO BID 05/13/18 05/13/18 05/13/18 Gabapentin [Neurontin] 100 mg PO 05/13/18 05/13/18 Hydrocodone/Acetaminophen [[place] 05/13/18 05/13/18 7.5-325 Tablet] Ibuprofen [Motrin] 800 mg PO Q6H PRN 05/13/18 05/13/18 05/13/18 Omeprazole [Prilosec] 20 mg PO DAILY 05/13/18 05/13/18 05/13/18 Allergies Allergy/AdvReac Type Severity Reaction Status Date / Time codeine Allergy ALTERED Verified 05/13/18 12:32 MENTAL STATUS morphine Allergy ITCHING Verified 05/13/18 12:32 Iodinated Contrast- Oral and AdvReac Pt has Verified 05/13/18 12:32 IV Dye Renal Failure Review of Systems Constitutional: Denies: Chills, Fever, Malaise, Weakness Eyes: Denies: Eye discharge ENT: Denies: Congestion, Throat pain Respiratory: Denies: Cough, Dyspnea, Hemoptysis, Wheezes Cardiovascular: Denies: Chest pain, Palpitations, Syncope Endocrine: Denies: Fatigue Gastrointestinal: Denies: Abdominal pain, Diarrhea, Nausea, Vomiting Genitourinary: Denies: Dysuria Musculoskeletal: Reports: Myalgia Skin: Denies: Bruising, Change in color, Rash Neurological: Denies: Headache Psychiatric: Denies: Anxiety Hematological/Lymphatic: Reports: Blood Clots. Denies: Easy bleeding, Easy bruising Past Medical History - SOCIAL HISTORY Smoking Status: Never smoker Drug Use: None - RESPIRATORY Hx Respiratory Disorders: No - CARDIOVASCULAR Hx Cardio Disorders: Yes Hx Hypertension: Yes - NEURO Hx Neuro Disorders: No - GI Hx GI Disorders: Yes Hx Diverticulitis: Yes (diverticulosis) - Hx Genitourinary Disorders: Yes Hx Dialysis: No Hx Renal Disease: Yes - ENDOCRINE Hx Endocrine Disorders: Yes Hx Diabetes: No Hx Thyroid Disease: Yes - MUSCULOSKELETAL Hx Musculoskeletal Disorders: No - PSYCH Hx Psych Problems: No - HEMATOLOGY/ONCOLOGY Hx Hematology/Oncology Disorders: No Hx Cancer: No Physical Exam - General General Appearance: Alert, Oriented x3, Cooperative, No acute distress Limitations: No limitations - Head Head exam: Atraumatic, Normal inspection - Eye Eye exam: Normal appearance, Conjunctival injection - ENT ENT exam: Normal exam Ear exam: Normal external inspection Nasal Exam: Normal inspection Mouth exam: Normal external inspection - Neck Neck exam: Normal inspection - Respiratory Respiratory exam: Normal lung sounds bilaterally. negative: Respiratory distress - Cardiovascular Cardiovascular Exam: Regular rate, Normal rhythm, Normal heart sounds Peripheral Pulses: 1+: Dorsalis Pedis (L) (limited due to foot edema) - Rectal Rectal exam: Deferred - exam: Deferred - Extremities Extremities exam: Full ROM, Pedal edema. negative: Normal inspection, Tenderness Image of Full Body: 1 - swelling of the left calf noted compared to the right. Some changes of chronic statis noted. NO abnormal warmth or coolness - Neurological Neurological exam: Alert, Oriented X3 - Psychiatric Psychiatric exam: negative: Agitated, Anxious - Skin Skin exam: negative: Erythema Course - Reevaluation(s) Reevaluation #1: EMR reviewed for recent office visits noting the chronic pain and swelling. 05/13/18 12:42 05/13/18 12:[address] Shepherd. He has seen the patient in the office just over a week ago. He will assist by seeing the patient in the ED to manager enterprise any difference from office visit. 05/13/18 13:25 Dr Shepherd saw the patient at the bedside. The leg on the left is significantly changed from prior with swelling 05/13/18 13:40 [facility] Summary Reviewed from 02/08/18. 05/13/18 14:27 The Venous doppler was read as negative for DVT in the external iliac through the popliteal to the posterior tibia veins. The calf veins are limited 05/13/18 14:37 The BMP demonstrated chronic stable renal insufficiency with CR of 1.7 05/13/18 14:41 The longest calf distance measured is 25 inch (63cm) 05/13/18 15:06 The results were discussed with DR Shepherd. No clinical signs of infection or on the labs. No signs of acute arterial insufficiency. After discussion with Dr Shepherd likely an exacerbation of the chronic lymphedema. He will refer her to the lymphedema clinic. We discussed at length home strategies to help with edema. We discussed reasons to return as well. Medical Decision Making - Lab Data Result diagrams: 05/13/18 14:03 05/13/18 14:03 Disposition Disposition: Discharge Clinical Impression: Leg edema, left Disposition: Home, Self-Care Condition: (1) Good Instructions: Leg Edema (ED), Lymphedema (ED) Additional Instructions: Return if your leg increases in size, becomes red, warm, or any concerns Call Dr Shepherd for your follow up appointment Measure the calf everyday and keep track of the results Use the HARIKA Wrap and elevate to help with the edema Dr Shepherd has referred you to the lymphedema clinic at [facility] Forms: Patient Portal Access Time of Disposition: 15:09 Quality - Quality Measures Quality Measures: N/A - Blood Pressure Screening Does Patient Have Any of the Following: Active Dx of HTN Blood Pressure Classification: Hypertensive Reading Systolic Measurement: 151 Diastolic Measurement: 78 Screening for High Blood Pressure: Patient Exclusion, Hx of HTN [G9744]
[2018-05-13 14:13] LABS: HEMATOCRIT 41.2 % (35.0-47.0); HEMOGLOBIN 12.3 gm/dl (11.6-16.0); MEAN CELL VOLUME 89.6 fl (81-97); MEAN CORPUSCULAR HEMOGLOBIN 26.7 pg (27-33); MEAN CORPUSCULAR HGB CONC 29.9 g/dl (32-36); MEAN PLATELET VOLUME 11.1 fl (7.4-10.4); PLATELET COUNT 119 K/uL (130-400); RED CELL DISTRIBUTION WIDTH 18.7 % (11.5-14.5); WHITE BLOOD COUNT W/O DIFF 7.8 K/uL (4.2-12.2)
[2018-05-13 14:23] LABS: CREATININE 1.7 mg/dL (0.5-0.9); INR 1.1; PARTIAL THROMBOPLASTIN TIME 28.9 SECONDS (24.5-39.1); PROTHROMBIN TIME (PATIENT) 10.7 SECONDS (9.5-12.1)
--- NOTE | 2018-05-15 22:27 | US VENOUS DOPPLER REPORT ---
EXAM: ULTRASOUND VENOUS DOPPLER LOWER EXT LT HISTORY: LEG SWELLING WITH HISTORY OF DVT. TECHNIQUE: Routine lower extremity venous Duplex ultrasound of the left leg. COMPARISON: None. FINDINGS: No evidence of deep venous thrombosis involving the left external iliac vein, left saphenofemoral junction, left profunda femoral vein, left proximal mid or distal femoral vein, left popliteal vein, or left posterior tibial vein. The left gastrocnemius veins, anterior tibial vein, and peroneal vein are not well seen due to overlying edema. No evidence of thrombus involving the right external iliac or common femoral veins. IMPRESSION: NO EVIDENCE OF DEEP VENOUS THROMBOSIS IN THE LEFT LOWER EXTREMITY FROM THE EXTERNAL ILIAC THROUGH THE POPLITEAL AND POSTERIOR TIBIAL VEINS. THE REMAINING CALF VEINS COULD NOT BE WELL VISUALIZED DUE TO OVERLYING SOFT TISSUE EDEMA. JOB NUMBER: [id number] [facility]
== END 2018-05-13 15:50 | disposition home or self-care (01) ==
LOC: ER 12:23
DX: R60.0 Localized edema (principal); M79.662 Pain in left lower leg; I89.0 Lymphedema, not elsewhere classified; I10 Essential (primary) hypertension; Z79.01 Long term (current) use of anticoagulants
CPT/HCPCS: 80048; 85027; 85610; 85730; 99283

== ENCOUNTER 2018-08-12 09:59 | Day surgery (SDC) | payer MEDICARE, OTHER ==
[2018-08-12] MEDS ORDERED: LIDOCAINE 2% MDV (20MG/ML) 20ML VIAL IV ONE (10:00)
[2018-08-12] MEDS ORDERED: PROPOFOL 10 MG/ML VIAL IV ONE (10:00)
--- NOTE | 2018-08-13 08:50 | Operative Note ---
DATE OF SURGERY: 08/12/2018 OPERATION: 1. ESOPHAGOGASTRODUODENOSCOPY with biopsy. 2. COLONOSCOPY. PREOPERATIVE DIAGNOSES: 1. Iron deficiency anemia. 2. History of upper GI bleed. POSTOPERATIVE DIAGNOSES: 1. Xpbnp-rz-blnlzoyh size hiatal hernia. 2. 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 3. Otherwise normal upper endoscopy. 4. Colonic diverticulosis, left side greater than right. 5. Otherwise normal colonoscopy. PREPARATION QUALITY: Good.ESTIMATED BLOOD LOSS: Minimal. SPECIMENS: Gastric biopsies. COMPLICATIONS: None apparent. PROCEDURE: After informed consent was obtained from the patient, she was placed in the left lateral decubitus position in the endoscopy suite, sedated and monitored by the department of anesthesia. Once sedated, a well-lubricated [id number] gastroscope was placed in the posterior oropharynx, advanced to the proximal, mid, and distal esophagus. There were changes suggestive of short-segment Hall's. No ulcers, erosions, strictures, varices, or mass lesions otherwise seen. There was a xjnxw-aw-ererguig size hiatal hernia. The hiatal hernia sac demonstrated no lesions. There were no Johnathon's ulcers noted. The subdiaphragmatic stomach, body, antrum, pylorus, duodenal bulb and sweep were unremarkable. J-turn views of the proximal stomach were unrevealing other than the aforementioned hernia. No new abnormalities were otherwise noted. The endoscope was straightened and gastric biopsies were obtained to rule out occult H pylori infection. The duodenum was again inspected. No abnormalities were identified. The endoscope removed from the patient with no new findings noted. Digital rectal exam was unrevealing. A well-lubricated [id number] colonoscope was inserted into the rectum and advanced to the cecum. Preparation quality was good. The cecum, cecal bulb, ileocecal valve, appendiceal orifice, ascending colon, transverse colon, descending colon, sigmoid colon, and rectum were inspected. There were scattered diverticula in the ascending colon as well as the sigmoid colon but more prominently seen in the sigmoid colon. No inflammation, polyps, or mass lesions were seen. No fresh or old blood was seen. The rectum was unremarkable in forward and J-turn views. The endoscope was straightened, the rectal ampulla deflated, and the endoscope was removed. RECOMMENDATIONS: The patient should resume her medications and diet. At this point, I see no obvious bleeding lesions of concern. As always, thank you for allowing me to participate in the healthcare of your patients. CC: MD TERRIE Deutsch
== END 2018-08-12 11:35 | disposition home or self-care (01) ==
LOC: HOP 09:59
PROVIDERS: ATTEND Internal Medicine Gastroenterology
DX: D50.9 Iron deficiency anemia, unspecified (principal); Z87.19 Personal history of other diseases of the digestive system; K44.9 Diaphragmatic hernia without obstruction or gangrene; K57.30 Diverticulosis of large intestine without perforation or abscess without bleeding; I10 Essential (primary) hypertension; E78.00 Pure hypercholesterolemia, unspecified

== ENCOUNTER 2018-09-09 20:27 | Emergency (ER) | payer MEDICARE, OTHER ==
[2018-09-09] MEDS ORDERED: HYDROCODONE/APAP 5/325MG TABLET PO ONE (20:56)
--- NOTE | 2018-09-09 21:12 | Emergency Department Record ---
History of Present Illness - General Chief complaint: Pain Stated complaint: LT SHOULDER PAIN Time Seen by Provider: 09/09/18 20:49 Source: Patient Mode of Arrival: Wheelchair Limitations: No limitations - History of Present Illness Initial comments: pt injured her l shoulder 2 wks ago when she was reaching back. she has a joint replacement in that shoulder.. she has swelling in that arm w deformity, erythema and tenderness MD Complaint: Extremity pain, Extremity swelling Onset/Timin -: Week(s) Location: Left, Shoulder Severity scale (1-10): 9 Improves with: Rest Worsens with: Exertion Associated Symptoms: Other - Related Data Home Medications Medication Instructions Recorded Confirmed Last Taken Furosemide [Lasix] 20 mg PO DAILY 09/09/18 09/09/18 Unknown Previous Rx's Medication Instructions Recorded Cephalexin [Keflex] 500 mg PO QID #40 cap 09/09/18 Hydrocodone/Acetaminophen [[place] 1 each PO Q8HR #10 tablet 09/09/18 7.5-325 Tablet] Allergies Allergy/AdvReac Type Severity Reaction Status Date / Time codeine Allergy ALTERED Verified 09/09/18 20:30 MENTAL STATUS morphine Allergy ITCHING Verified 09/09/18 20:30 Iodinated Contrast- Oral and AdvReac Pt has Verified 09/09/18 20:30 IV Dye Renal Failure Travel Screening - Travel/Exposure Within Last 30 Days Have you traveled within the last 30 days?: No - Travel Symptoms Symptom Screening: None Review of Systems Reviewed: No additional complaints except as noted below Constitutional: Reports: As per HPI. Denies: Chills, Fever, Malaise, Night sweats, Weakness, Weight change Eyes: Reports: As per HPI. Denies: Eye discharge, Eye pain, Photophobia, Vision change ENT: Reports: As per HPI. Denies: Congestion, Dental pain, Ear pain, Epistaxis , Hearing loss, Throat pain Respiratory: Reports: As per HPI. Denies: Cough, Dyspnea, Hemoptysis, Stridor, Wheezes Cardiovascular: Reports: As per HPI. Denies: Arrhythmia, Chest pain, Dyspnea on exertion, Edema, Murmurs, Orthopnea, Palpitations, Paroxysmal nocturnal dyspnea, Rheumatic Fever, Syncope Endocrine: Reports: As per HPI. Denies: Fatigue, Heat or cold intolerance, Polydipsia, Polyuria Gastrointestinal: Reports: As per HPI. Denies: Abdominal pain, Constipation, Diarrhea, Hematemesis, Hematochezia, Melena, Nausea, Vomiting Genitourinary: Reports: As per HPI. Denies: Abnormal menses, Discharge, Dyspareunia, Dysuria, Frequency, Hematuria, Incontinence, Retention, Urgency Musculoskeletal: Reports: As per HPI. Denies: Arthralgia, Back pain, Gout, Joint swelling, Myalgia, Neck pain Skin: Reports: As per HPI. Denies: Bruising, Change in color, Change in hair/ nails, Lesions, Pruritus, Rash Neurological: Reports: As per HPI. Denies: Abnormal gait, Confusion, Headache, Numbness, Paresthesias, Seizure, Tingling, Tremors, Vertigo, Weakness Psychiatric: Reports: As per HPI. Denies: Anxiety, Auditory hallucinations, Depression, Homicidal thoughts, Suicidal thoughts, Visual hallucinations Hematological/Lymphatic: Reports: As per HPI. Denies: Anemia, Blood Clots, Easy bleeding, Easy bruising, Swollen glands Past Medical History - SOCIAL HISTORY Smoking Status: Never smoker - RESPIRATORY Hx Respiratory Disorders: No - CARDIOVASCULAR Hx Cardio Disorders: Yes Hx Deep Vein Thrombosis: Yes Hx Hypertension: Yes Hx Vascular Disease: Yes - NEURO Hx Neuro Disorders: No - GI Hx GI Disorders: Yes Hx Abdominal Pain: Yes Hx Diverticulitis: Yes (diverticulosis) Hx GI Bleed: Yes (r/t duodenal ulcer) Hx Ulcer: Yes (bleeding Ulcers w/blood tranfusions) - Hx Genitourinary Disorders: Yes Hx Renal Disease: Yes - ENDOCRINE Hx Endocrine Disorders: Yes Hx Diabetes: No Hx Thyroid Disease: Yes - MUSCULOSKELETAL Hx Musculoskeletal Disorders: Yes Hx Arthritis: Yes Hx Fibromyalgia: No Hx Gout: Yes - PSYCH Hx Psych Problems: Yes Hx Depression: Yes - HEMATOLOGY/ONCOLOGY Hx Hematology/Oncology Disorders: Yes Hx Anemia: Yes (iron deficiency anemia) Hx Cancer: No Family Medical History Any Significant Family History?: Yes Hx HTN: Father, Mother Hx Stroke: Grandparents Physical Exam - General General Appearance: Alert, Oriented x3, Cooperative, Mild distress - Head Head exam: Normal inspection - Eye Eye exam: Normal appearance, PERRL, EOMI Pupils: Normal accommodation - ENT ENT exam: Normal exam, Mucous membranes moist, Normal external ear exam, Normal orophraynx, TM's normal bilaterally Ear exam: Normal external inspection. negative: External canal tenderness Nasal Exam: Normal inspection. negative: Discharge, Sinus tenderness Mouth exam: Normal external inspection, Tongue normal Teeth exam: Normal inspection. negative: Dental caries Throat exam: Normal inspection. negative: Tonsillar erythema, Tonsillar exudate - Neck Neck exam: Normal inspection, Full ROM. negative: Tenderness - Respiratory Respiratory exam: Normal lung sounds bilaterally. negative: Respiratory distress - Cardiovascular Cardiovascular Exam: Regular rate, Normal rhythm, Normal heart sounds - GI/Abdominal GI/Abdominal exam: Soft, Normal bowel sounds. negative: Tenderness - Rectal Rectal exam: Deferred - exam: Deferred - Extremities Extremities exam: Normal capillary refill, Tenderness. negative: Full ROM Image of Full Body: 1 - swelling, deformity, erythema, tenderness - Back Back exam: Reports: Normal inspection, Full ROM. Denies: Muscle spasm, Rash noted, Tenderness - Neurological Neurological exam: Alert, CN II-XII intact, Normal gait, Oriented X3 - Psychiatric Psychiatric exam: Normal affect, Normal mood - Skin Skin exam: Dry, Intact, Normal color, Warm Course Vital Signs 09/09/18 20:31 Temperature 98 F Pulse Rate [ 92 H Pulse Ox Probe] Respiratory 24 Rate Blood Pressure 158/67 [Right Arm] Pulse Ox 94 L - Reevaluation(s) Reevaluation #1: 09/09/18 23:48 d/w dr escobar who wants pt to go home and f/u for surgery next week Medical Decision Making - Lab Data Result diagrams: 09/09/18 21:20 Disposition Disposition: Discharge Clinical Impression: Shoulder dislocation Qualifiers: Encounter type: initial encounter Laterality: left Qualified Code(s): S43.005A - Unspecified dislocation of left shoulder joint, initial encounter Disposition: Home, Self-Care Instructions: Shoulder Dislocation (ED) Additional Instructions: follow up with dr escobar on thursday without fail. return sooner if worse. Prescriptions: Hydrocodone/Acetaminophen [[place] 7.5-325 Tablet] 1 each PO Q8HR #10 tablet Cephalexin [Keflex] 500 mg PO QID #40 cap Forms: Patient Portal Access Quality - Quality Measures Quality Measures: N/A - Blood Pressure Screening Does Patient Have Any of the Following: No Blood Pressure Classification: Pre-Hypertensive BP Reading Systolic Measurement: 130 Diastolic Measurement: 70 Screening for High Blood Pressure: < Pre-Hypertensive BP, F/U Documented > [ G8950] Pre-Hypertensive Follow-up Interventions: Follow-up with rescreen every year.
[2018-09-09 21:23] LABS: HEMATOCRIT 30.4 % (35.0-47.0); HEMOGLOBIN 8.7 gm/dl (11.6-16.0); MEAN CELL VOLUME 81.5 fl (81-97); MEAN CORPUSCULAR HEMOGLOBIN 23.3 pg (27-33); MEAN CORPUSCULAR HGB CONC 28.6 g/dl (32-36); MEAN PLATELET VOLUME 9.2 fl (7.4-10.4); PLATELET COUNT 253 K/uL (130-400); RED BLOOD COUNT 3.73 M/uL (3.80-5.40); RED CELL DISTRIBUTION WIDTH 18.7 % (11.5-14.5); WHITE BLOOD COUNT W/O DIFF 9.3 K/uL (4.2-12.2)
[2018-09-09] MEDS ORDERED: CEPHALEXIN 500 MG CAPSULE PO STA (23:48)
[2018-09-10] MEDS ORDERED: ONDANSETRON 4 MG ODT TABLET SL ONE (00:24)
--- NOTE | 2018-09-10 15:02 | RADIOLOGY REPORT ---
EXAM: LEFT SHOULDER, THREE VIEWS HISTORY: PATIENT HAS PAIN IN THE LEFT SHOULDER. TECHNIQUE: Three views of the left shoulder are provided along the comparison study dated 10/04/17. FINDINGS: In the interval there has been placement of a left reverse total shoulder arthroplasty. The humeral component appears to have dislocated anteriorly and inferiorly with respect to the glenoid component. No obvious jayesh-implant fractures are identified. IMPRESSION: ANTERIOR, INFERIOR DISLOCATION OF THE HUMERAL COMPONENT WITH RESPECT TO THE GLENOID COMPONENT OF THE LEFT REVERSE SHOULDER ARTHROPLASTY. JOB NUMBER: [id number] [facility]
--- NOTE | 2018-09-10 15:05 | RADIOLOGY REPORT ---
EXAM: LEFT HUMERUS, TWO VIEWS HISTORY: PATIENT HAS A HISTORY OF INJURY. TECHNIQUE: Two views of the left humerus are provided along with the comparison study of the left shoulder dated 10/04/17. FINDINGS: Left reverse shoulder arthroplasty is identified. No jina-implant fractures are identified. There is anterior and inferior dislocation of the humeral component with respect to the glenoid component. IMPRESSION: DISLOCATION OF THE HUMERAL COMPONENT WITH RESPECT TO THE GLENOID COMPONENT OF THE LEFT SHOULDER ARTHROPLASTY IS NOTED. NO JINA-IMPLANT FRACTURES ARE IDENTIFIED. JOB NUMBER: [id number] [facility]TDD
== END 2018-09-10 00:32 | disposition home or self-care (01) ==
LOC: ER 20:27
DX: T84.028A Dislocation of other internal joint prosthesis, initial encounter (principal); R79.89 Other specified abnormal findings of blood chemistry; I10 Essential (primary) hypertension; X50.0XXA Overexertion from strenuous movement or load, initial encounter; Z96.612 Presence of left artificial shoulder joint
CPT/HCPCS: 85027; 85379; 85651; 86140; 99284

== ENCOUNTER 2018-09-27 02:28 | Emergency (ER) | payer MEDICARE, OTHER ==
--- NOTE | 2018-09-27 02:39 | Emergency Department Record ---
History of Present Illness - General Chief Complaint: Laceration(s) Stated Complaint: CUT Time Seen by Provider: 09/27/18 02:33 Source: Patient Mode of Arrival: Wheelchair Limitations: No limitations - History of Present Illness Initial Commments: 78 yo female presents to ED for evaluation following a laceration to the left knee. Patient reports that she was walking back from the bathroom to her bedroom when she struck her left knee laterally on her cane resulting in a laceration to the lateral knee. Patient denies other injury on examination, denies the use of anticoagulation medications at her baseline. Onset/Timin -: Minutes(s) Extremity Location: Left: Knee Place: Home Context: Accidental Associated Symptoms: None Treatments Prior to Arrival: Bandage - [place] Coma Scale Eye Response: (4) Open spontaneously Motor Response: (6) Obeys commands Verbal Response: (5) Oriented Garcia Total: 15 - Related Data Previous Rx's Medication Instructions Recorded Cephalexin [Keflex] 500 mg PO QID #40 cap 09/09/18 Hydrocodone/Acetaminophen [Zillah 1 each PO Q8HR #10 tablet 09/09/18 7.5-325 Tablet] Clindamycin HCl [Cleocin HCl] 300 mg PO QID #40 capsule 09/27/18 Hydrocodone/Acetaminophen [Zillah 1 each PO Q6H PRN #10 tablet 09/27/18 7.5-325 Tablet] Allergies Allergy/AdvReac Type Severity Reaction Status Date / Time codeine Allergy ALTERED Verified 09/27/18 02:58 MENTAL STATUS morphine Allergy ITCHING Verified 09/27/18 02:58 Iodinated Contrast- Oral and AdvReac Pt has Verified 09/27/18 02:58 IV Dye Renal Failure Review of Systems Constitutional: Denies: Chills, Fever, Malaise, Night sweats Eyes: Denies: Eye discharge, Eye pain ENT: Denies: Congestion, Ear pain, Epistaxis Respiratory: Denies: Cough, Dyspnea Cardiovascular: Denies: Chest pain, Dyspnea on exertion Endocrine: Denies: Fatigue, Heat or cold intolerance Gastrointestinal: Denies: Abdominal pain, Nausea, Vomiting Genitourinary: Denies: Incontinence, Retention Musculoskeletal: Denies: Arthralgia, Back pain Skin: Reports: Other (laceration to the left lateral knee). Denies: Bruising, Change in color Neurological: Denies: Abnormal gait, Confusion, Headache, Seizure Psychiatric: Denies: Anxiety Hematological/Lymphatic: Denies: Anemia, Blood Clots Past Medical History - SOCIAL HISTORY Smoking Status: Never smoker - RESPIRATORY Hx Respiratory Disorders: No - CARDIOVASCULAR Hx Cardio Disorders: Yes Hx Deep Vein Thrombosis: Yes Hx Hypertension: Yes Hx Vascular Disease: Yes - NEURO Hx Neuro Disorders: No - GI Hx GI Disorders: Yes Hx Abdominal Pain: Yes Hx Diverticulitis: Yes (diverticulosis) Hx GI Bleed: Yes (r/t duodenal ulcer) Hx Ulcer: Yes (bleeding Ulcers w/blood tranfusions) - Hx Genitourinary Disorders: Yes Hx Renal Disease: Yes - ENDOCRINE Hx Endocrine Disorders: Yes Hx Diabetes: No Hx Thyroid Disease: Yes - MUSCULOSKELETAL Hx Musculoskeletal Disorders: Yes Hx Arthritis: Yes Hx Fibromyalgia: No Hx Gout: Yes - PSYCH Hx Psych Problems: Yes Hx Depression: Yes - HEMATOLOGY/ONCOLOGY Hx Hematology/Oncology Disorders: Yes Hx Anemia: Yes (iron deficiency anemia) Hx Cancer: No Family Medical History Hx HTN: Father, Mother Hx Stroke: Grandparents Physical Exam - General General Appearance: Alert, Oriented x3, Cooperative, Mild distress Limitations: No limitations - Head Head exam: Atraumatic, Normocephalic, Normal inspection Head exam detail: negative: Abrasion, Contusion, Antunez's sign, General tenderness, Hematoma, Laceration - Eye Eye exam: Normal appearance. negative: Conjunctival injection, Periorbital swelling, Periorbital tenderness, Scleral icterus - ENT Ear exam: negative: Auricular hematoma, Auricular trauma, External canal tenderness Nasal Exam: negative: Active bleeding, Discharge, Dried blood, Foreign body Mouth exam: negative: Drooling, Laceration, Muffled voice, Tongue elevation - Neck Neck exam: Normal inspection. negative: Meningismus, Tenderness - Respiratory Respiratory exam: Normal lung sounds bilaterally. negative: Rales, Respiratory distress, Rhonchi, Stridor - Cardiovascular Cardiovascular Exam: Regular rate, Normal rhythm, Normal heart sounds - GI/Abdominal GI/Abdominal exam: Soft. negative: Rebound, Rigid, Tenderness - Rectal Rectal exam: Deferred - exam: Deferred - Extremities Extremities exam: Other (Lymphedema to the LLE on examination with a 6.5 cm laceration extending down to the underlying tissues, bleeding controlled. No underlying FB is present on examination.) - Back Back exam: Denies: CVA tenderness (R), CVA tenderness (L) - Neurological Neurological exam: Alert, Oriented X3 - Psychiatric Psychiatric exam: Normal affect, Normal mood - Skin Skin exam: Normal color. negative: Abrasion Type of lesion: negative: abrasion Course - Reevaluation(s) Reevaluation #1: 09/27/18 02:54 Left knee: No radio-opaque FB identified No fracture identified 03:22 AM Case was discussed with Dr. Armenta (Trauma Surgery, [facility]), recommends extensive irrigation, antibiotics, and primary closure. Dr. Armenta reports that unless the patella is involved, washout in the OR is generally not recommended. Procedure Note: Stellate 6.5 cm laceration to the left lateral knee, bleeding controlled. Wound was cleaned and prepped in sterile fashion following irrigation with 3000 mL sterile saline (2 sterile saline bags and (2) 500 mL sterile saline under jet irrigation), no residual FB identified on examination. Wound was anesthetized with 10 mL of 1% Lidocaine with epinephrine with good anesthesia, and the laceration was repaired with 3-0 Vicryl sutures (#4) internally and 3-0 Prolene sutures (#13) in interrupted fashion. Patient tolerated the procedure well without complications. Clindamycin was initiated in the ED, will discuss follow-up for wound rechecks with Dr. Shepherd later this morning with goal of having the patient seen in 48 hours for re-evaluation. Reevaluation #2: 09/27/18 06:54 Case was discussed with Dr. Bray, will have the patient follow-up in his office/[facility] for wound checks later this well. Disposition Disposition: Discharge Clinical Impression: Laceration of left knee Qualifiers: Encounter type: initial encounter Qualified Code(s): S81.012A - Laceration without foreign body, left knee, initial encounter Disposition: Home, Self-Care Condition: (2) Stable Instructions: Laceration (ED) Additional Instructions: Return to ED if your symptoms worsen or if you have any concerns. Clindamycin as directed. Follow-up with Dr. Bray in 48-[address] Shepherd in 48 hours for a wound check. Sutures out in 2-[address] Bray or Dr. Shepherd. Prescriptions: Clindamycin HCl [Cleocin HCl] 300 mg PO QID #40 capsule Hydrocodone/Acetaminophen [Zillah 7.5-325 Tablet] 1 each PO Q6H PRN #10 tablet PRN Reason: Pain - Mod To Severe (5-10) Referrals: MILTON BRAY [DOCTOR OF OSTEOPATH] - [facility] [Provider Group] Forms: Patient Portal Access Time of Disposition: 04:03 Quality - Quality Measures Quality Measures: N/A - Blood Pressure Screening Does Patient Have Any of the Following: No Blood Pressure Classification: Pre-Hypertensive BP Reading Systolic Measurement: 138 Diastolic Measurement: 81 Screening for High Blood Pressure: < Pre-Hypertensive BP, F/U Documented > [ [id number]] Pre-Hypertensive Follow-up Interventions: Referral to alternative/primary care provider.
[2018-09-27] MEDS ORDERED: CLINDAMYCIN 150 MG CAP PO ONE (02:53)
[2018-09-27] MEDS ORDERED: HYDROCODONE/APAP 7.5/325MG TABLET PO ONE (04:14)
--- NOTE | 2018-09-28 10:03 | RADIOLOGY REPORT ---
EXAM: LEFT KNEE HISTORY: KNEE PAIN AFTER LACERATION. TECHNIQUE: Three views of the left knee were obtained. Comparison: None. FINDINGS: Soft tissue lucencies within the superficial soft tissues along the proximal lateral calf, may represent soft tissue lacerations. Knee joint effusion. Faint calcific structure in the suprapatellar recess region measuring up to 2.5 cm. No lucent fracture line. No evidence of dislocation. Marked tricompartmental osteoarthrosis with areas of significant joint space narrowing and marginal osteophyte formation. Vascular calcifications. IMPRESSION: 1. PROXIMAL LATERAL CALF SOFT TISSUE INJURY. 2. OVOID 2.5 CM STRUCTURE IN THE SUPRAPATELLAR RECESS; MAY REPRESENT A LARGE JOINT BODY OR AGE INDETERMINATE PATELLAR AVULSION. 3. OTHERWISE, NO ACUTE OSSEOUS FINDINGS. 4. ADVANCED TRICOMPARTMENTAL OSTEOARTHROSIS. JOB NUMBER: [id number] MTDD
== END 2018-09-27 04:27 | disposition home or self-care (01) ==
LOC: ER 02:28
DX: S81.012A Laceration without foreign body, left knee, initial encounter (principal); W45.8XXA Other foreign body or object entering through skin, initial encounter; W22.8XXA Striking against or struck by other objects, initial encounter; Y92.009 Unspecified place in unspecified non-institutional (private) residence as the place of occurrence of the external cause; I10 Essential (primary) hypertension
CPT/HCPCS: 12032; 99284

== ENCOUNTER 2018-10-04 16:11 | Inpatient (IN) | payer MEDICARE, OTHER ==
--- NOTE | 2018-10-04 18:31 | Emergency Department Record ---
History of Present Illness - General Chief Complaint: Wound, puncture Stated Complaint: WOUND INFECTION Time Seen by Provider: 10/04/18 17:55 Source: Patient Mode of Arrival: Wheelchair Limitations: No limitations - History of Present Illness Initial Commments: 78 yo female presents to ED for evaluation of redness, discharge from recent laceration repair 7-8 days ago. Patient's daughter reports that her wound had been doing well until this morning when discharge was noted from the wound. Patient's daughter reports mild surrounding redness was noted as well, called patient's PCP and was told to come to the ED for evaluation. Patient denies fevers, chills, or generalized weakness symptoms. Patient has been taking Clindamycin following her laceration repair. Onset/Timin -: Days(s) Extremity Location: Left: Knee Associated Symptoms: Pain Treatments Prior to Arrival: Bandage - [place] Coma Scale Eye Response: (4) Open spontaneously Motor Response: (6) Obeys commands Verbal Response: (5) Oriented Garcia Total: 15 - Related Data Hx Tetanus Toxoid Vaccination: Yes Year of Tetanus Vaccination: ? Previous Rx's Medication Instructions Recorded Clindamycin HCl [Cleocin HCl] 300 mg PO QID #40 capsule 09/27/18 Allergies Allergy/AdvReac Type Severity Reaction Status Date / Time codeine Allergy ALTERED Verified 10/04/18 16:47 MENTAL STATUS morphine Allergy ITCHING Verified 10/04/18 16:47 Iodinated Contrast- Oral and AdvReac Pt has Verified 10/04/18 16:47 IV Dye Renal Failure Travel Screening - Travel/Exposure Within Last 30 Days Have you traveled within the last 30 days?: No Review of Systems Constitutional: Reports: Malaise. Denies: Chills, Fever, Night sweats Eyes: Denies: Eye discharge, Eye pain ENT: Denies: Congestion, Ear pain, Epistaxis Respiratory: Denies: Cough, Dyspnea Cardiovascular: Denies: Chest pain, Dyspnea on exertion Endocrine: Denies: Fatigue, Heat or cold intolerance Gastrointestinal: Denies: Abdominal pain, Nausea, Vomiting Genitourinary: Denies: Incontinence, Retention Musculoskeletal: Denies: Arthralgia, Back pain Skin: Reports: Other (Wound infection). Denies: Bruising, Change in color Neurological: Denies: Abnormal gait, Confusion, Headache Psychiatric: Denies: Anxiety Hematological/Lymphatic: Denies: Blood Clots, Other Past Medical History - SOCIAL HISTORY Smoking Status: Never smoker Alcohol Use: None Drug Use: None - RESPIRATORY Hx Respiratory Disorders: No - CARDIOVASCULAR Hx Cardio Disorders: Yes Hx Deep Vein Thrombosis: Yes Hx Hypertension: Yes Hx Vascular Disease: Yes - NEURO Hx Neuro Disorders: No - GI Hx GI Disorders: Yes Hx Abdominal Pain: Yes Hx Diverticulitis: Yes (diverticulosis) Hx GI Bleed: Yes (r/t duodenal ulcer) Hx Ulcer: Yes (bleeding Ulcers w/blood tranfusions) - Hx Genitourinary Disorders: Yes Hx Renal Disease: Yes - ENDOCRINE Hx Endocrine Disorders: Yes Hx Diabetes: No Hx Thyroid Disease: Yes - MUSCULOSKELETAL Hx Musculoskeletal Disorders: Yes Hx Arthritis: Yes Hx Fibromyalgia: No Hx Gout: Yes - PSYCH Hx Psych Problems: Yes Hx Depression: Yes - HEMATOLOGY/ONCOLOGY Hx Hematology/Oncology Disorders: Yes Hx Anemia: Yes (iron deficiency anemia) Hx Cancer: No Family Medical History Any Significant Family History?: Yes Hx HTN: Father, Mother Hx Stroke: Grandparents Physical Exam - General General Appearance: Alert, Oriented x3, Cooperative, Mild distress Limitations: No limitations - Head Head exam: Atraumatic, Normocephalic, Normal inspection Head exam detail: negative: Abrasion, Contusion, Antunez's sign, General tenderness, Hematoma, Laceration - Eye Eye exam: Normal appearance. negative: Conjunctival injection, Periorbital swelling, Periorbital tenderness, Scleral icterus - ENT Ear exam: negative: Auricular hematoma, Auricular trauma Nasal Exam: negative: Active bleeding, Discharge, Dried blood, Foreign body Mouth exam: negative: Drooling, Laceration, Muffled voice, Tongue elevation - Neck Neck exam: Normal inspection. negative: Meningismus, Tenderness - Respiratory Respiratory exam: Normal lung sounds bilaterally. negative: Respiratory distress, Rhonchi, Stridor, Wheezes - Cardiovascular Cardiovascular Exam: Regular rate, Normal rhythm, Normal heart sounds - GI/Abdominal GI/Abdominal exam: Soft. negative: Rebound, Rigid, Tenderness - Rectal Rectal exam: Deferred - exam: Deferred - Extremities Extremities exam: Other (Mild purulent drainage is present from patient's previously repaired wound lateral left knee, sutures are in place.). negative: Pedal edema, Tenderness - Neurological Neurological exam: Alert, Oriented X3 - Psychiatric Psychiatric exam: Normal affect, Normal mood - Skin Skin exam: Other (Mild erythema surrounding the patient's wound.) Type of lesion: negative: abrasion Course Vital Signs 10/04/18 16:49 Temperature 98.1 F Pulse Rate 97 H Respiratory 20 Rate Blood Pressure 138/74 Pulse Ox 97 - Reevaluation(s) Reevaluation #1: 10/04/18 19:00 Laboratory studies were reviewed and are grossly unremarkable for an acute process: WBC 7.8 Hgb 9.3 HCT 33.3 GFR 39% (at the patient's baseline) Left Knee radiographs: Degenerative changes, negative for soft-tissue gas. 10/04/18 19:18 Case was discussed with Dr. Bray, will initiate Unasyn here in the ED and admit for IV antibiotics, Dr. Bray will see the patient tomorrow morning. Reevaluation #2: 10/04/18 19:27 Case was discussed with Dr. Norris, will accept admission at this time. Patient and her family members were updated on the plan of care at this time. Medical Decision Making - Lab Data Result diagrams: 10/04/18 18:20 10/04/18 18:20 Disposition Disposition: Admit Clinical Impression: Wound infection following procedure Disposition: Still a Patient at [facility] Decision to Admit: Admit from ER Decision to Admit Date: 10/04/18 Decision to Admit Time: 19:28 Condition: (2) Stable Time of Disposition: 19:28 Quality - Quality Measures Quality Measures: N/A - Blood Pressure Screening Does Patient Have Any of the Following: Active Dx of HTN Blood Pressure Classification: Pre-Hypertensive BP Reading Systolic Measurement: 138 Diastolic Measurement: 74 Screening for High Blood Pressure: Patient Exclusion, Hx of HTN [G9744]
[2018-10-04 18:36] LABS: HEMATOCRIT 33.3 % (35.0-47.0); HEMOGLOBIN 9.3 gm/dl (11.6-16.0); MEAN CELL VOLUME 79.7 fl (81-97); MEAN CORPUSCULAR HEMOGLOBIN 22.2 pg (27-33); MEAN CORPUSCULAR HGB CONC 27.9 g/dl (32-36); PLATELET COUNT 198 K/uL (130-400); RED BLOOD COUNT 4.18 M/uL (3.80-5.40); RED CELL DISTRIBUTION WIDTH 20.4 % (11.5-14.5); WHITE BLOOD COUNT W/O DIFF 7.8 K/uL (4.2-12.2)
[2018-10-04 18:51] LABS: CREATININE 1.4 mg/dL (0.5-0.9)
[2018-10-04 18:58] LABS: ANISOCYTOSIS 1+; HYPOCHROMIA 1+
[2018-10-04] MEDS ORDERED: AMPICILLIN SODIUM/SULBACTAM NA 3 G in 0.9 % SODIUM CHLORIDE 100ML 100 ML IVPB ONE (19:20)
[2018-10-04] MEDS ORDERED: 0.9 % SODIUM CHLORIDE 1000ML 1,000 ML IV PRN (20:26)
[2018-10-04] MEDS: AMPICILLIN SODIUM/SULBACTAM NA 3 G in 0.9 % SODIUM CHLORIDE 100ML 100 ML IVPB SCH (20:57)
[2018-10-04] MEDS: NYSTATIN 15 GM POWDER TP SCH (21:56)
[2018-10-04] MEDS: GABAPENTIN 300 MG CAPSULE PO SCH (21:56)
[2018-10-05] MEDS: AMPICILLIN SODIUM/SULBACTAM NA 3 G in 0.9 % SODIUM CHLORIDE 100ML 100 ML IVPB SCH ×4 (02:23→21:02)
--- NOTE | 2018-10-05 05:33 | RADIOLOGY REPORT ---
EXAM: LEFT LOWER LEG HISTORY: LEFT LOWER LEG WOUND WEEPING. TECHNIQUE: AP and lateral views of the left lower leg were obtained. Comparison: No prior left lower leg series. FINDINGS: Prominent degenerative arthritis left knee, but no definite acute fracture or destructive lesion identified in the left lower leg. There is probably some mild vascular calcification present. IMPRESSION: 1. ADVANCED DEGENERATIVE ARTHRITIS LEFT KNEE. 2. EXTENSIVE DIFFUSE SOFT TISSUE PROMINENCE IN THE CALF. 3. NO DEFINITE ACUTE FRACTURE OR DESTRUCTIVE LESION SEEN IN THE LEFT LOWER LEG. JOB NUMBER: [id number] [facility]
[2018-10-05] MEDS: PANTOPRAZOLE SODIUM 40 MG TABLET PO SCH (06:26)
[2018-10-05] MEDS: LEVOTHYROXINE SODIUM 50 MCG TABLET PO SCH (06:26)
[2018-10-05] MEDS: CITALOPRAM 20 MG TABLET PO SCH (09:47)
[2018-10-05] MEDS: BENAZEPRIL 20 MG TABLET PO SCH (09:47)
[2018-10-05] MEDS: GABAPENTIN 300 MG CAPSULE PO SCH ×2 (09:47→21:02)
[2018-10-05] MEDS: NYSTATIN 15 GM POWDER TP SCH ×2 (09:48→21:59)
[2018-10-05] MEDS: FUROSEMIDE 20 MG TABLET PO SCH (09:48)
[2018-10-05 09:55] LABS: BASO % 0.4 % (0-6); EOS % 4.7 % (0-6); GRAN % 69.4 % (47-80); HEMATOCRIT 30.2 % (35.0-47.0); HEMOGLOBIN 8.4 gm/dl (11.6-16.0); LYMPH % 19.3 % (16-45); MEAN CORPUSCULAR HEMOGLOBIN 22.2 pg (27-33); MEAN CORPUSCULAR HGB CONC 27.8 g/dl (32-36); MEAN PLATELET VOLUME 10.1 fl (7.4-10.4); MONO % 6.2 % (0-9); PLATELET COUNT 185 K/uL (130-400); RED BLOOD COUNT 3.78 M/uL (3.80-5.40); WHITE BLOOD COUNT W/O DIFF 7.1 K/uL (4.2-12.2)
[2018-10-05 10:10] LABS: CREATININE 1.6 mg/dL (0.5-0.9)
--- NOTE | 2018-10-05 10:33 | History & Physical ---
History of Present Illness - Date of Service Date of Service for History & Physical: 10/05/18 - History of Present Illness Admitting Diagnosis: Wound infection History of Present Illness: 78 year old female patient presented to ED for evaluation of a wound on her left lower leg. Patient was seen in ER 09/27 for a laceration to left lower leg as a result of cutting her leg on her cane. Patient received extensive irrigation of her leg and suture repair of the laceration in ED on 09/27. Patient was sent home on Clindamycin and instructed to follow-up with Dr. Bray outpatient for surveillance of wound. Patient states she noted redness and clear fluid draining from leg yesterday morning. Patient reports baseline swelling of left leg due to a calcium deposit in her femoral artery that was evaluated 8 years ago. Past medical history includes HTN, high cholesterol, stage IV kidney disease. Patient also has left shoulder dislocation after left shoulder replacement that was unable to be repaired surgically. Patient sees ortho out of [facility] regarding left shoulder. Patient states she has noted progressive weakness at home over the past 6 months and is requiring additional assistance with ADLs over the past 6 months due to the shoulder injury. Patient currently lives with daughters who are able to assist. Patient ambulates with cane and walker within the home. PCP: Dr. Cora ADAMS Course: Temp 98.1F, HR 97, RR 20, BP 138/74, Pulse ox 97% WBC 7.8, Hgb 9.3, HCT 33.3, GFR 39% (at baseline), CR 1.4 Left tib/fib x-ray: advanced degenerative arthritis, extensive soft tissue prominence in calf, no fracture or destructive lesion IV Unasyn started Consult Dr. Bray 10/05/18: Patient A&O x 4, resting comfortably in bed. Patient has erythema, warmth, and swelling noted to right lower extremity. Serous fluid weeping from wound. Afebrile, VS WNL. WBC 7.8, lactic 1.8. Patient receiving Unasyn IVPB. Pending consult with Dr. Bray. Travel Screening - Travel/Exposure Within Last 30 Days Have you traveled within the last 30 days?: No - Travel/Exposure Within Last Year Have you traveled outside the [place] in the last year?: No - Additonal Travel Details Have you been exposed to anyone with a communicable illness?: No - Travel Symptoms Symptom Screening: None Review of Systems Reviewed: No additional complaints except as noted below Constitutional: Reports: Malaise. Denies: Chills, Fever, Night sweats Eyes: Denies: Eye discharge, Eye pain ENT: Denies: Congestion, Ear pain, Epistaxis Respiratory: Denies: Cough, Dyspnea Cardiovascular: Denies: Chest pain, Dyspnea on exertion Endocrine: Denies: Fatigue, Heat or cold intolerance Gastrointestinal: Denies: Abdominal pain, Nausea, Vomiting Genitourinary: Denies: Incontinence, Retention Musculoskeletal: Denies: Arthralgia, Back pain Skin: Reports: Other (Wound infection left lower leg). Denies: Bruising, Change in color Neurological: Denies: Abnormal gait, Confusion, Headache Psychiatric: Denies: Anxiety Hematological/Lymphatic: Denies: Blood Clots, Other Past Medical History - SOCIAL HISTORY Smoking Status: Never smoker Alcohol Use: None Drug Use: None - RESPIRATORY Hx Respiratory Disorders: No - CARDIOVASCULAR Hx Cardio Disorders: Yes Hx Deep Vein Thrombosis: Yes Hx Hypertension: Yes Hx Vascular Disease: Yes - NEURO Hx Neuro Disorders: No - GI Hx GI Disorders: Yes Hx Abdominal Pain: Yes Hx Diverticulitis: Yes (diverticulosis) Hx GI Bleed: Yes (r/t duodenal ulcer) Hx Ulcer: Yes (bleeding Ulcers w/blood tranfusions) - Hx Genitourinary Disorders: Yes Hx Renal Disease: Yes - ENDOCRINE Hx Endocrine Disorders: Yes Hx Diabetes: No Hx Thyroid Disease: Yes - MUSCULOSKELETAL Hx Musculoskeletal Disorders: Yes Hx Arthritis: Yes Hx Fibromyalgia: No Hx Gout: Yes - PSYCH Hx Psych Problems: Yes Hx Depression: Yes - HEMATOLOGY/ONCOLOGY Hx Hematology/Oncology Disorders: Yes Hx Anemia: Yes (iron deficiency anemia) Hx Cancer: No Family Medical History Any Significant Family History?: Yes Hx HTN: Father, Mother Hx Stroke: Grandparents H&P Meds/Allergies - Allergies Allergies: Allergies Allergy/AdvReac Type Severity Reaction Status Date / Time acetaminophen [From Tylenol] Allergy HIVES Verified 10/05/18 04:16 codeine Allergy ALTERED Verified 10/04/18 16:47 MENTAL STATUS morphine Allergy ITCHING Verified 10/04/18 16:47 Iodinated Contrast- Oral and AdvReac Pt has Verified 10/04/18 16:47 IV Dye Renal Failure - Home Medications Home Medications Medication Instructions Recorded Confirmed Last Taken Simvastatin 20 mg PO QHS 10/05/18 10/05/18 Unknown Previous Rx's Medication Instructions Recorded Clindamycin HCl [Cleocin HCl] 300 mg PO QID #40 capsule 09/27/18 - Active Medications Active Medications: Current Medications Hydrocodone Bitart/Acetaminophen ([place] 7.5mg/325mg) 1 each PO TID PRN PRN Reason: PAIN - MOD TO SEVERE (5-10) Benazepril HCl (Lotensin) 20 mg PO DAILY [facility] Last Admin: 10/05/18 09:47 Dose: 20 mg Citalopram Hydrobromide (Celexa) 40 mg PO DAILY [facility] Last Admin: 10/05/18 09:47 Dose: 40 mg Enoxaparin Sodium (Lovenox) 40 mg SQ DAILY [facility] Furosemide (Lasix) 20 mg PO DAILY [facility] Last Admin: 10/05/18 09:48 Dose: 20 mg Gabapentin (Neurontin) 600 mg PO BID [facility] Last Admin: 10/05/18 09:47 Dose: 600 mg Sodium Chloride () 1,000 mls @ 100 mls/hr IV .Q10H PRN PRN Reason: LARGE VOLUME IV Last Infusion: 10/05/18 08:15 Dose: Infused Ampicillin Sodium/Sulbactam (Sodium 3 g/ Sodium Chloride) 100 mls @ 200 mls/hr IVPB Q6H [facility] Last Admin: 10/05/18 08:22 Dose: 200 mls/hr Levothyroxine Sodium (Synthroid) 50 mcg PO DAILYTHY [facility] Last Admin: 10/05/18 06:26 Dose: 50 mcg Nystatin (Nystop) 1 gm TP BID [facility] Last Admin: 10/05/18 09:48 Dose: 1 gm Pantoprazole Sodium (Protonix) 40 mg PO DAILYAC [facility] Last Admin: 10/05/18 06:26 Dose: 40 mg Simvastatin (Zocor) 20 mg PO QHS [facility] Physical Exam - Vital Signs Vital Signs: Vital Signs - Last 24 Hrs Temp Pulse Pulse Resp BP BP Pulse Ox 10/05/18 09:00 18 10/05/18 07:55 98.4 F 83 18 127/67 95 10/05/18 06:00 98.2 F 73 20 128/65 96 10/04/18 21:00 78 20 10/04/18 20:26 97.8 F 78 20 175/81 97 10/04/18 20:11 75 20 141/78 96 10/04/18 16:49 98.1 F 97 H 20 138/74 97 - General General Appearance: Alert, Oriented x3, Cooperative, No acute distress Limitations: No limitations - Head Head exam: Atraumatic, Normocephalic, Normal inspection Head exam detail: negative: Abrasion, Contusion, Antunez's sign, General tenderness, Hematoma, Laceration - Eye Eye exam: Normal appearance. negative: Conjunctival injection, Periorbital swelling, Periorbital tenderness, Scleral icterus - ENT ENT exam: Mucous membranes moist Ear exam: Normal external inspection. negative: Auricular hematoma, Auricular trauma Nasal Exam: negative: Active bleeding, Discharge, Dried blood, Foreign body Mouth exam: Tongue normal. negative: Drooling, Laceration, Muffled voice, Tongue elevation - Neck Neck exam: Normal inspection. negative: Meningismus, Tenderness - Respiratory Respiratory exam: Normal lung sounds bilaterally. negative: Respiratory distress, Rhonchi, Stridor, Wheezes - Cardiovascular Cardiovascular Exam: Regular rate, Normal rhythm, Normal heart sounds Peripheral Pulses: 2+: Radial (R), Radial (L) - GI/Abdominal GI/Abdominal exam: Soft. negative: Rebound, Rigid, Tenderness - Rectal Rectal exam: Deferred - exam: Deferred - Extremities Extremities exam: Pedal edema (left lower leg edema 3+, patient reports chronic edema), Tenderness (left lower leg), Other (Mild purulent drainage is present from patient's previously repaired wound lateral left knee, sutures are in place.) - Neurological Neurological exam: Alert, Oriented X3 - Psychiatric Psychiatric exam: Normal affect, Normal mood - Skin Skin exam: Other (Mild erythema surrounding the patient's wound.) Type of lesion: negative: abrasion Results - Labs Result Diagrams: 10/04/18 18:20 10/05/18 09:48 Labs Last 24 Hours: Laboratory Results - last 24 hr 10/04/18 10/04/18 10/04/18 18:20 18:20 18:20 WBC 7.8 RBC 4.18 Hgb 9.3 L Hct 33.3 L MCV 79.7 L MCH 22.2 L MCHC 27.9 L RDW 20.4 H Plt Count 198 MPV 10.0 Neutrophils % 76.0 Eosinophils % Not Reportable Basophils % Not Reportable Lymphocytes 18.0 Monocytes 4.0 Hypochromasia 1+ Anisocytosis 1+ Eosinophil Count 2.0 Sodium 143 Potassium 3.5 Chloride 105 Carbon Dioxide 29.0 Anion Gap 9.0 BUN 19 Creatinine 1.4 H Estimated GFR 39 Random Glucose 87 Lactic Acid 1.8 Calcium 8.7 L 10/05/18 09:48 WBC RBC Hgb Hct MCV MCH MCHC RDW Plt Count MPV Neutrophils % Eosinophils % Basophils % Lymphocytes Monocytes Hypochromasia Anisocytosis Eosinophil Count Sodium 141 Potassium 3.2 L Chloride 105 Carbon Dioxide 26.0 Anion Gap 10.0 BUN 22 Creatinine 1.6 H Estimated GFR 33 Random Glucose 109 Lactic Acid Calcium 8.0 L VTE H&P Assessment - Risk for VTE Risk for VTE: Yes Risk Level: Moderate Risk Assessment Date: 10/05/18 Risk Assessment Time: 10:36 VTE Orders Placed or Will Be Placed: Yes Plan - Detailed Diagnosis and Plan (1) Wound infection following procedure Current Visit: Yes Status: Acute Base Code: T81.49XA - INFECTION FOLLOWING A PROCEDURE, OTHER SURGICAL SITE, INIT Comment: 10/05/18: -laceration to left lower leg 09/27, with irrigation and suture repair in ED. Discharged home with clindamycin -Noted increased erythema, warmth, tenderness, and drainage -Left tib/fib x-ray: advanced degenerative arthritis of left knee, extensive soft tissue prominence in calf, no fracture or destructive lesion -Wound culture pending -Afebrile -WBC 7.8, lactic 1.8 -Unasyn IVPB 3gm q6h -Dr. Bray consult (2) Physical deconditioning Current Visit: Yes Status: Acute Base Code: R53.81 - OTHER MALAISE Comment: 10/05/18: -Continued physical deconditioning noted over past 6 months -Requires assistance with ADLs at home -PT/OT to evaluate (3) Shoulder dislocation Current Visit: No Status: Acute Qualifiers: Encounter type: initial encounter Laterality: left Qualified Code(s): S43.005A - Unspecified dislocation of left shoulder joint, initial encounter Base Code: S43.006A - UNSP DISLOCATION OF UNSPECIFIED SHOULDER JOINT, INIT ENCNTR Comment: 10/05/18: -History of left shoulder repair -Left shoulder dislocation about 6 months ago -Patient reports seeing ortho at [facility] and was told surgical repair is not an option at this time -PT/OT eval to determine if any assistive devices can be used (4) DVT prophylaxis Current Visit: Yes Status: Acute Base Code: Z29.9 - ENCOUNTER FOR PROPHYLACTIC MEASURES, UNSPECIFIED Comment: 10/05/18: -High risk due to hospitalization, age, and illness -Lovenox 40mg SQ daily -Encourage ambulation within the room (5) Full code status Current Visit: Yes Status: Acute Base Code: Z78.9 - OTHER SPECIFIED HEALTH STATUS Comment: 10/05/18: -Patient is a full code
[2018-10-05 10:35] LABS: MEAN CELL VOLUME 79.9 fl (81-97); RED CELL DISTRIBUTION WIDTH 20.3 % (11.5-14.5)
--- NOTE | 2018-10-05 15:07 | Inpatient Certification ---
Inpatient Certification Admit to inpatient care: Based on my medical assessment, after consideration of patient's risk factors (age, co-morbidities and patient presenting symptoms and acuity), I expect that this patient will remain in the hospital greater than or equal to two midnights and that the services needed warrant inpatient care because: Patient Risk Factors: [age, infection, hospitalization] Estimated length of stay: The patient may reasonably be expected to be discharged or transferred to a hospital within 24-96 hours after admission to [facility]. Services needed: [IV antibiotics, wound care, PT/OT services] Post hospital care (if known): [] I certify that my determination is in accordance with my understanding of [facility] requirements for reasonable and necessary inpatient services. 10/05/18 15:06
--- NOTE | 2018-10-05 15:42 | Rehab Evaluation ---
Patient Information - Patient Information Diagnosis: wound infection Ordered Treatment: OT Evaluate and Treat Status: Initial Evaluation Surgery: No History: Detail (Pt reports she tripped and fell last September at which time she dislocated her left shoulder. She re-dislocated it several months ago while pulling up her pants.) Past Medical/Surgical Hx: PAST MEDICAL/SURGICAL HISTORY Past Surgical History appy hernia in umbilicus cataracts bilat misha gb stones removed. PMH - Respiratory Hx Respiratory Disorders No PMH - Cardiovascular Hx Cardiovascular Disorders Yes Hx Deep Vein Thrombosis Yes Hx Hypertension Yes Hx Vascular Disease Yes PMH - Neuro Hx Neurological Disorders No PMH - GI Hx Gastrointestinal Disorders Yes Hx Abdominal Pain Yes Hx Diverticulitis Yes: diverticulosis Hx Gastrointestinal Bleed Yes: r/t duodenal ulcer Hx Gastroesophageal Reflux Yes Hx Ulcer Yes: bleeding Ulcers w/blood tranfusions PMH - Hx Genitourinary Disorders Yes Patient No Hx Dialysis No Hx Renal Disease Yes PMH - Endocrine Hx Endocrine Disorders Yes Hx Diabetes No Hx Thyroid Disease Yes PMH - Musculoskeletal Hx Musculoskeletal Disorders Yes Hx Arthritis Yes Hx Fibromyalgia No Hx Gout Yes PMH - Psych Hx Psychiatric Problems Yes Hx Depression Yes PMH - Hematology/Oncology Hx Hematology/Oncology Yes Disorders Hx Anemia Yes: iron deficiency anemia Hx Cancer No Premorbid Status: Detail (Pt reports she lives with 2 adopted daughters in a 2 story house. She stays on the main level. There are no steps at the entrance. She has a walk in shower with a seat and grab bars and an elevated toilet with a grab bar. Her daughters assist her with lower body bathing and also with upper extremity dressing if she needs help. She is Ind with toileting, lower body dressing, dusting, making her bed, cleaning her commode and other light IADLs. Her daughters complete meal prep, laundry and heavy home mgmt tasks. She ambulates with a 2 wheeled walker. She has a wheelchair, electric scooter and hospital bed.) Precautions: Ione, Fall, Other (isolation precautions) - Time With Patient Total Time Spent With Patient (Min): 35 Treatment Procedures: Detail (OT eval low complexity) Subjective Information - Subjective Information Per Patient Objective Data - Pain Pain Present: Yes (5-6/10 pain in left shoulder and left leg) - Mental Status Patient Orientation: Oriented x3 - Visual Perception Appears within normal limits for therapeutic activities (Pt wears glasses) - ROM Not within normal limits (Right UE AROM functional for patients level of activity, left shoulder not formally tested due to dislocation, left elbow and hand AROM WNL) - Strength/Tone Not within normal limits (Right shoulder flexion 3/5, right elbow and employee development specialist 4/5, left shoulder and elbow not tested, left employee development specialist 4/5) - Coordination Appears within normal limits for therapeutic activities - Bed Mobility Independent (Ind with supine to sit) - Transfers Independent (Ind with sit to stand from EOB) - Balance Balance Sitting: Good Balance Standing: Fair - Sensation Intact - Gait Detail (Pt ambulated 5 feet to chair with 2 wheeled walker and CG assist. Pt was short of breath with activity.) - ADL's/IADL's Detail (Pt able to brush hair in sitting, she reports nursing is assisting with all self cares. Pt was fatigued after evaluation.) Therapy Assessment - Therapy Assessment Detail (Pt presents with decreased left UE function due to shoulder dislocation , decreased Ind with self cares and decreased activity tolerance.) Problem List - Problem List Occupational Therapy Problem List: Detail (1. Decreased Ind with self care tasks. 2. Decreased endurance needed for safe and Ind self cares and functional mobility.) Goals - Goals Occupational Therapy Goals: 1. Pt will be Ind with total body dressing. 2. Pt will demonstrated improved endurance to allow safe and Ind functional mobility and self cares. Prognosis - Prognosis Good Plan - Plan Occupational Therapy Plan: OT 1-3 times per week to address self cares, endurance and UE function.
[2018-10-05] MEDS: SIMVASTATIN 20 MG TABLET PO SCH (21:02)
[2018-10-05] MEDS: HYDROCODONE/APAP 7.5/325MG TABLET PO PRN (21:02)
[2018-10-06] MEDS: AMPICILLIN SODIUM/SULBACTAM NA 3 G in 0.9 % SODIUM CHLORIDE 100ML 100 ML IVPB SCH ×4 (02:32→21:09)
[2018-10-06] MEDS: LEVOTHYROXINE SODIUM 50 MCG TABLET PO SCH (07:03)
[2018-10-06] MEDS: PANTOPRAZOLE SODIUM 40 MG TABLET PO SCH (07:03)
[2018-10-06 08:26] LABS: ABSOLUTE NEUTROPHIL COUNT 3.57; HEMATOCRIT 30.5 % (35.0-47.0); HEMOGLOBIN 8.3 gm/dl (11.6-16.0); MEAN CELL VOLUME 80.7 fl (81-97); MEAN CORPUSCULAR HGB CONC 27.2 g/dl (32-36); MEAN PLATELET VOLUME 10.6 fl (7.4-10.4); PLATELET COUNT 182 K/uL (130-400); RED BLOOD COUNT 3.78 M/uL (3.80-5.40); RED CELL DISTRIBUTION WIDTH 20.5 % (11.5-14.5); WHITE BLOOD COUNT W/O DIFF 5.9 K/uL (4.2-12.2)
[2018-10-06 08:32] LABS: MEAN CORPUSCULAR HEMOGLOBIN 21.9 pg (27-33)
[2018-10-06 08:43] LABS: ANISOCYTOSIS 1+; HYPOCHROMIA 1+; PLATELET ESTIMATE NORMAL (NORMAL)
[2018-10-06 08:49] LABS: ALB/GLOB RATIO 0.8 (1.1-1.8); ALKALINE PHOSPHATASE 101 U/L (35-104); ALT/SGPT < 5 U/L (<33); AST/SGOT 10 U/L (10.0-35.0); BLOOD UREA NITROGEN 26 mg/dL (8-23); CREATININE 1.5 mg/dL (0.5-0.9); EST GLOMERULAR FILTRATION RATE 36 mL/min; GLUCOSE,RANDOM 91 mg/dL (74-109); TOTAL PROTEIN 6.6 g/dL (6.6-8.7)
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
[2018-10-06] MEDS: CITALOPRAM 20 MG TABLET PO SCH (11:13)
[2018-10-06] MEDS: BENAZEPRIL 20 MG TABLET PO SCH (11:13)
[2018-10-06] MEDS: ENOXAPARIN 40 MG/0.4 ML SYR SQ SCH (11:13)
[2018-10-06] MEDS: FUROSEMIDE 20 MG TABLET PO SCH (11:13)
[2018-10-06] MEDS: NYSTATIN 15 GM POWDER TP SCH ×2 (11:13→21:10)
[2018-10-06] MEDS: GABAPENTIN 300 MG CAPSULE PO SCH ×2 (11:14→21:09)
--- NOTE | 2018-10-06 13:47 | Rehab Evaluation ---
Patient Information - Patient Information Diagnosis: wound infection Ordered Treatment: PT Evaluate and Treat Status: Initial Evaluation Surgery: No History: Detail (Pt reports she tripped and fell last September at which time she dislocated her left shoulder. She re-dislocated it several months ago while pulling up her pants.) Past Medical/Surgical Hx: PAST MEDICAL/SURGICAL HISTORY Past Surgical History appy hernia in umbilicus cataracts bilat misha gb stones removed. PMH - Respiratory Hx Respiratory Disorders No PMH - Cardiovascular Hx Cardiovascular Disorders Yes Hx Deep Vein Thrombosis Yes Hx Hypertension Yes Hx Vascular Disease Yes PMH - Neuro Hx Neurological Disorders No PMH - GI Hx Gastrointestinal Disorders Yes Hx Abdominal Pain Yes Hx Diverticulitis Yes: diverticulosis Hx Gastrointestinal Bleed Yes: r/t duodenal ulcer Hx Gastroesophageal Reflux Yes Hx Ulcer Yes: bleeding Ulcers w/blood tranfusions PMH - Hx Genitourinary Disorders Yes Patient No Hx Dialysis No Hx Renal Disease Yes PMH - Endocrine Hx Endocrine Disorders Yes Hx Diabetes No Hx Thyroid Disease Yes PMH - Musculoskeletal Hx Musculoskeletal Disorders Yes Hx Arthritis Yes Hx Fibromyalgia No Hx Gout Yes PMH - Psych Hx Psychiatric Problems Yes Hx Depression Yes PMH - Hematology/Oncology Hx Hematology/Oncology Yes Disorders Hx Anemia Yes: iron deficiency anemia Hx Cancer No Premorbid Status: Detail (Pt reports she lives with 2 adopted daughters in a 2 story house. She stays on the main level. There are no steps at the entrance. She has a walk in shower with a seat and grab bars and an elevated toilet with a grab bar. Her daughters assist her with lower body bathing and also with upper extremity dressing if she needs help. She is Ind with toileting, lower body dressing, dusting, making her bed, cleaning her commode and other light IADLs. Her daughters complete meal prep, laundry and heavy home mgmt tasks. She ambulates with a 2 wheeled walker. She has a wheelchair, electric scooter and hospital bed.) Precautions: [place], Fall, Other (isolation precautions) - Time With Patient Total Time Spent With Patient (Min): 30 Treatment Procedures: Detail (Initial Evaluation.) Subjective Information - Subjective Information Per Patient (The patient was fatigued following shower she had this am. The patient also complained of L shoulder and L knee pain but did not rate pain using 0 to 10 pain scale.) Objective Data - Mental Status Patient Orientation: Oriented x3 - Visual Perception Appears within normal limits for therapeutic activities - ROM Within normal limits (The pt.'s LE PROM is WFL.) - Strength/Tone Not within normal limits (The patient's LE strength is as follows: bilateral ankle musculature 4+/5, knee extensors 4/5, knee flexors R 4-/5, knee extensors 4/5, L hip flexors 3/5, R 4-/5, hip abd and add 4-/5.) - Bed Mobility Needs Assist (Not assessed. The patient was up in chair.) - Transfers Independent (The patient was independent with sit to and from stand and with toilet transfer with use of grab bar.) - Balance Balance Sitting: Good Balance Standing: Fair (The patient required support of walker in standing and use of grab bar to maintain standing in bathroom.) - Gait Detail (The patient ambulated with front wheeled walker with supervision for saftery 7 feet x 2 . The patient was short of breath after ambulation.) Therapy Assessment - Therapy Assessment Detail (The patient exhibits decreased LE strength and shortness of breath after ambulating a short distance. Feel the patient would benefit from subacute Rehab to return to previous functional level which was ambulatory household distances . Will also evaluate patient's balance using an objective balance test due to frequent falls per her report.) Problem List - Problem List Physical Therapy Problem List: Detail (1) Decreased LE strength 2) Decreased ability to complete prolonged physical activity 3) Decreased standing balance) Occupational Therapy Problem List: Detail (1. Decreased Ind with self care tasks. 2. Decreased endurance needed for safe and Ind self cares and functional mobility.) Goals - Goals Physical Therapy Goals: 1) Assess bed mobility. 2) Increase LE strenght 1/3 muscle grade to increase stability of gait. 3) Assess the patient's balance using objective balance test. 4) The patient will ambulate with assistive device household distances with minimal shortness of breath. Occupational Therapy Goals: 1. Pt will be Ind with total body dressing. 2. Pt will demonstrated improved endurance to allow safe and Ind functional mobility and self cares. Plan - Plan Physical Therapy Plan: PT daily for gait training, transfer training, LE strengthening and balance exercises. Occupational Therapy Plan: OT 1-3 times per week to address self cares, endurance and UE function.
--- NOTE | 2018-10-06 16:22 | Occupational Therapy Tx Note ---
Occupational Therapy Tx Note - Treatment Note Tolerated: Good Total Time Spent With Patient: 28 (2 ADL) Occupational Therapy Treatment Note: Detail (S: Pt agreeable to OT Tx, sitting in bedside chair upon arrival and reports she just wet her briefs. O: Fxl amb. with FWW bedside chair >< std. toilet with supervision and verbal instruction to breathe normally when therapist notices Pt holding breath and becoming SOB with increased labored breathing following. Also verbal instruction for safe FWW use. Pt toilets indep., doffs and dons brief with light MIN assist to thread L foot. Standing sink-side teeth brushing with supervision. OT educ. Pt on use of sock aide and perioperative assistant, Pt dons/doffs socks with mod I following instruction. A: Pt tolerates session well, motivated to learn adaptive techs to increase indep and safety, would benefit from short rehab stay to further increase indep. and fxl endurance.) Occupational Therapy Problem List: Detail (1. Decreased Ind with self care tasks. 2. Decreased endurance needed for safe and Ind self cares and functional mobility.) Occupational Therapy Goals: 1. Pt will be Ind with total body dressing. 2. Pt will demonstrated improved endurance to allow safe and Ind functional mobility and self cares. Prognosis: Good Occupational Therapy Plan: OT 1-3 times per week to address self cares, endurance and UE function.
[2018-10-06] MEDS: SIMVASTATIN 20 MG TABLET PO SCH (21:08)
[2018-10-06] MEDS: HYDROCODONE/APAP 7.5/325MG TABLET PO PRN (21:08)
[2018-10-07] MEDS: AMPICILLIN SODIUM/SULBACTAM NA 3 G in 0.9 % SODIUM CHLORIDE 100ML 100 ML IVPB SCH ×2 (02:39→12:32)
[2018-10-07] MEDS: LEVOTHYROXINE SODIUM 50 MCG TABLET PO SCH (06:05)
[2018-10-07] MEDS: PANTOPRAZOLE SODIUM 40 MG TABLET PO SCH (06:05)
[2018-10-07 06:58] LABS: ABSOLUTE NEUTROPHIL COUNT 4.72; HEMOGLOBIN 8.3 gm/dl (11.6-16.0); MEAN CELL VOLUME 79.6 fl (81-97); MEAN CORPUSCULAR HGB CONC 27.7 g/dl (32-36); MEAN PLATELET VOLUME 10.2 fl (7.4-10.4); PLATELET COUNT 177 K/uL (130-400); RED BLOOD COUNT 3.77 M/uL (3.80-5.40); RED CELL DISTRIBUTION WIDTH 20.4 % (11.5-14.5); WHITE BLOOD COUNT W/O DIFF 7.2 K/uL (4.2-12.2)
[2018-10-07 07:13] LABS: CREATININE 1.4 mg/dL (0.5-0.9)
--- NOTE | 2018-10-07 07:20 | RADIOLOGY REPORT ---
EXAM: CHEST HISTORY: REHAB PLACEMENT. TECHNIQUE: Frontal view of the chest was obtained with portable technique and upright position. Comparison: Left humerus x-ray 09/09/18. FINDINGS: Frontal view of the chest with portable technique and upright position shows low normal lung volumes. The lungs are clear. The cardiac silhouette size and mediastinal contours are within normal limits. No pulmonary vascular congestion. No pleural effusion. The bony structures again show dislocated left shoulder arthroplasty, similar to previous exam. IMPRESSION: 1. NO ACUTE ABNORMALITIES IN THE CHEST. 2. 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 JOB NUMBER: [id number] MTDD
[2018-10-07 09:49] LABS: ANISOCYTOSIS 2+; HYPOCHROMIA 3+
--- NOTE | 2018-10-07 10:00 | Medical Records Consult ---
DATE OF CONSULTATION: 10/05/2018 HISTORY OF PRESENT ILLNESS: This 78-year-old female who is previously known to me was seen for evaluation of possible septic left leg wound. The patient had seen me in the clinic a week before after having sustained injury to her left leg when she accidentally hit her leg with a cane and split open an oblique laceration inferior to the knee laterally on the left lower leg. The patient then went to the emergency room on the date of admission complaining of drainage and subsequently was admitted to the medicine service and orthopedic consultation requested. The patient reports some drainage of her knee started a few days ago. Did not appear to be particularly painful but was uncertain as to the significance of the drainage and came into the emergency room. The emergency room physician called me about the findings and admitted her to the hospital and placed her on Unasyn for antibiotic coverage. PHYSICAL EXAMINATION: Demonstrated significant amount of loss of fluid from her leg. It was much more swollen the date that I saw her in the clinic last week, so the swelling was down considerably. The drainage from the wound appeared to be serous. I did not see any purulent material. I actually could not even express any material from the wound. There was no erythema and it was not tender to palpation. LABORATORY DATA: Essentially normal. Not showing any sign of infection. DIAGNOSIS: Draining wound of the left lower leg. RECOMMENDATION: I have discussed the findings with the patient. I do not feel that this wound is infected although I completely agree with antibiotic prophylaxis and coverage. I do think that this will eventually dry up but there was significant loss of fluid from her leg, which is probably the etiology of this drainage. The drainage was not foul smelling and it was difficult to tell exactly how much fluid there was because there was drainage on the bed clothes at the time of the evaluation but I could not express it from the wound. I have recommended that the patient continue with intravenous Unasyn until such time as the drainage stops and she can then be discharged to an outpatient setting. I have evaluated the patient again on 10/06/2018. The drainage is significantly less than seen the day before and again, no purulent material was evident. No erythema of the wound was noted. The patient will follow up in the office in 1 week on 10/20/2018 for a reevaluation. TERRIE
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
[2018-10-07] MEDS: CITALOPRAM 20 MG TABLET PO SCH (11:33)
[2018-10-07] MEDS: GABAPENTIN 300 MG CAPSULE PO SCH ×2 (11:33→21:36)
[2018-10-07] MEDS: FUROSEMIDE 20 MG TABLET PO SCH (11:34)
[2018-10-07] MEDS: ENOXAPARIN 40 MG/0.4 ML SYR SQ SCH (11:35)
[2018-10-07] MEDS: BENAZEPRIL 20 MG TABLET PO SCH (12:31)
[2018-10-07] MEDS: NYSTATIN 15 GM POWDER TP SCH ×2 (13:57→21:37)
--- NOTE | 2018-10-07 14:20 | Physical Therapy Tx Note ---
Physical Therapy Tx Note - Treatment Note Tolerated: Good Total Time Spent With Patient: 55 Physical Therapy Tx Note: Detail (Pt in bed upon arrival, sleeping but awakened easily and cooperative for therapy. Nrsg present in room shortly after awakening for med administration. Min assist for supine to sit at edge of bed. Sit to stand at front wheeled walker with SBA, for ambulation to bathroom with SBA. Assisted with doffing and donning brief, hygiene after toileting; sit/stand independently holding onto grab bar. Ambulated w/SBA to room door and to recliner at bedside, pivoted to recliner independently and sat with good control. Independently positioned herself in chair; assisted for leg elevation. Provided with sheet to cover legs, call light in reach. Notified nrsg. Pt tolerated mobility well; 02/10 Tinetti gait score; 04/16 balance score = 20/28 total score = moderate risk of falls.) Physical Therapy Problem List: Detail (1) Decreased LE strength 2) Decreased ability to complete prolonged physical activity 3) Decreased standing balance) Physical Therapy Goals: 1) Assess bed mobility - met. 2) Increase LE strenght 1/3 muscle grade to increase stability of gait. 3) Assess the patient's balance using objective balance test - met. 4) The patient will ambulate with assistive device household distances with minimal shortness of breath. Prognosis: Good Physical Therapy Plan: PT daily for gait training, transfer training, LE strengthening and balance exercises.
[2018-10-07] MEDS: AMOXICILLIN/POTASSIUM CLAV 875MG/125MG TABLET PO SCH ×2 (15:26→21:37)
[2018-10-07] MEDS ORDERED: ZINC OXIDE 28.35 GM TUBE TOP ONE (15:59)
[2018-10-07] MEDS: SIMVASTATIN 20 MG TABLET PO SCH (21:37)
[2018-10-07] MEDS: HYDROCODONE/APAP 7.5/325MG TABLET PO PRN (21:39)
[2018-10-08] MEDS: PANTOPRAZOLE SODIUM 40 MG TABLET PO SCH (06:16)
[2018-10-08] MEDS: LEVOTHYROXINE SODIUM 50 MCG TABLET PO SCH (06:17)
[2018-10-08] MEDS: BENAZEPRIL 20 MG TABLET PO SCH (09:30)
[2018-10-08] MEDS: FUROSEMIDE 20 MG TABLET PO SCH (09:30)
[2018-10-08] MEDS: ENOXAPARIN 40 MG/0.4 ML SYR SQ SCH (09:30)
[2018-10-08] MEDS: CITALOPRAM 20 MG TABLET PO SCH (09:31)
[2018-10-08] MEDS: GABAPENTIN 300 MG CAPSULE PO SCH (09:31)
[2018-10-08] MEDS: AMOXICILLIN/POTASSIUM CLAV 875MG/125MG TABLET PO SCH (09:31)
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
[2018-10-08] MEDS: NYSTATIN 15 GM POWDER TP SCH (12:07)
[2018-10-08] MEDS: HYDROCODONE/APAP 7.5/325MG TABLET PO PRN (13:00)
== END 2018-10-08 13:20 | DRG 863 ==
LOC: ER 16:11 → MEDSURG 20:14 → OBSVTOIN 10-05 14:22
PROVIDERS: ADMIT Emergency Medicine; ATTEND Internal Medicine
DX: T81.49XA Infection following a procedure, other surgical site, initial encounter (principal); T74.11XA Adult physical abuse, confirmed, initial encounter; T81.41XA Infection following a procedure, superficial incisional surgical site, initial encounter; I82.409 Acute embolism and thrombosis of unspecified deep veins of unspecified lower extremity; N18.4 Chronic kidney disease, stage 4 (severe); R53.81 Other malaise; N28.9 Disorder of kidney and ureter, unspecified; S43.006A Unspecified dislocation of unspecified shoulder joint, initial encounter; R60.1 Generalized edema; I10 Essential (primary) hypertension; E78.00 Pure hypercholesterolemia, unspecified; D50.9 Iron deficiency anemia, unspecified; L89.321 Pressure ulcer of left buttock, stage 1; F32.9 Major depressive disorder, single episode, unspecified; I73.9 Peripheral vascular disease, unspecified; Z87.19 Personal history of other diseases of the digestive system; M19.90 Unspecified osteoarthritis, unspecified site
CPT/HCPCS: 83605; 85025; 80048 ×2; 85027; 73590; G0378 ×4; J0295 ×3; 71045; 80053; 96365; 99223; 99233; 99239; 99285; J1650